=== PATIENT | female | born 1965 | race Caucasian/White ===

== ENCOUNTER 2017-06-01 14:55 | Emergency (ER) | payer MEDICARE, MEDICAID ==
[~2017-06-01] VITALS: Ht 165.1 cm; Wt 95.7 kg
[~2017-06-01 14:55] MED LIST: AMOXICILLIN500 M1 PO; ASPIRIN325 MG PO; ATIVAN0.5 MG PO; ATIVAN1 MG PO; AUGMENTIN 500 M1 TAB PO; AVELOX400 MG PO; AVPAK AZITHROM250 M1 PO; CARDIZEM CD240 MG PO; CARDIZEM120 MG PO; CIPRO250 MG PO; CIPRO500 MG PO; COUMADIN4 MG PO; DAYPRO600 M1 PO; DIFLUCAN100 MG PO; DILAUDID2 MG PO; ELIMITE 5%60 GM PO; FLAGYL500 MG PO; HYDROCOT25 MG PO; KEFLEX500 MG PO; KENALOG 0.1% OI15 GM T; LATUDA; LIDEX0.05% T; LOPRESSOR25 MG PO; LORAZEPAM1 MG PO; MEDROL DOSEPAK4 MG PO; METICORTEN1 MG; METOPROLOL; METOPROLOL SR25 MG PO; NAPROSYN500 MG PO; NEXIUM40 MG PO; OMNICEF300 MG PO; OSTERA TABLET1 EACH PO; PREDNISONE10 MG PO; PRILOSEC40 MG PO; PRINIVIL5 M1 PO; PROZAC20 MG PO; RISPERDAL1 M1 PO; SIMVASTATIN20 MG PO; ULTRAM50 MG PO; VIBRYD; VICODIN 5/500 505 MG PO; VICODIN 500 MG-1 TAB PO; VIIBRYD40 PO; VITAMIN D5000 I3 PO; ZESTRIL,PRINIVIL5 MG PO; ZETIA10 MG PO
[2017-06-01 16:12] LABS: BASO # 0.1 10*3/uL (0.0-0.1); BASO % 0.6 % (0.0-1.0); EOS % 0.4 % (1.0-4.0); HEMATOCRIT 36.1 % (37.0-47.0); HEMOGLOBIN 11.4 g/dl (12.0-16.0); LYMPH # 2.7 10*3/uL (1.3-4.4); MEAN CELL VOLUME 79.7 fl (81.0-99.0); MEAN CORPUSCULAR HGB 25.2 pg (27.0-31.0); MEAN CORPUSCULAR HGB CONC 31.6 g/dl (33.0-37.0); MEAN PLATELET VOLUME 9.5 fl (9.6-12.3); MONO # 0.6 10*3/uL (0.1-1.0); NEUT # 4.8 10*3/uL (2.3-7.9); NEUT % 58.5 % (47.0-73.0); PLATELET COUNT AUTOMATED 350 10*3/uL (130-400); RED BLOOD COUNT 4.53 10*6/uL (4.10-5.10); RED CELL DISTRI WIDTH 13.8 % (0-14.5); WHITE BLOOD COUNT 8.2 10*3/uL (4.8-10.8)
[2017-06-01 16:27] LABS: ALBUMIN 3.6 gm/dl (3.1-4.5); ALKALINE PHOSPHATASE 75 U/L (45-117); BUN 11 mg/dl (7-24); CHLORIDE 105 mmol/L (98-107); CREATININE 0.77 mg/dL (0.55-1.02); POTASSIUM 3.5 mmol/L (3.5-5.1); SGOT/AST 14 IU/L (3-35); SGPT/ALT 18 U/L (12-78); SODIUM 138 mmol/L (136-145); TOTAL PROTEIN 7.5 gm/dL (6.4-8.2)
[2017-06-01 17:04] VITALS: BP 138/62
[2017-06-01] MEDS ORDERED: MEDROL DOSEPAK4 MG PO (17:50)
== END 2017-06-01 17:50 | disposition home or self-care (01) ==
LOC: ED 14:55
PROVIDERS: Nurse Practitioner Family
DX: R51 Headache (principal); T43.595A Adverse effect of other antipsychotics and neuroleptics, initial encounter; F12.10 Cannabis abuse, uncomplicated; F31.9 Bipolar disorder, unspecified; F17.200 Nicotine dependence, unspecified, uncomplicated; Z98.890 Other specified postprocedural states; Z79.899 Other long term (current) drug therapy; Z91.040 Latex allergy status; Z88.8 Allergy status to other drugs, medicaments and biological substances; Y92.9 Unspecified place or not applicable

== ENCOUNTER 2017-06-08 09:53 | Emergency (ER) | payer MEDICARE, MEDICAID ==
[~2017-06-08] VITALS: Wt 96.2 kg
[2017-06-08 10:08] VITALS: BP 132/79
[2017-06-08 10:51] LABS: BASO % 0.4 % (0.0-1.0); EOS % 0.1 % (1.0-4.0); HEMATOCRIT 35.6 % (37.0-47.0); HEMOGLOBIN 11.1 g/dl (12.0-16.0); LYMPH # 1.8 10*3/uL (1.3-4.4); LYMPH % 24.9 % (27.0-41.0); MEAN CORPUSCULAR HGB 24.9 pg (27.0-31.0); MEAN CORPUSCULAR HGB CONC 31.2 g/dl (33.0-37.0); MEAN PLATELET VOLUME 9.8 fl (9.6-12.3); MONO # 0.4 10*3/uL (0.1-1.0); MONO % 5.6 % (3.0-9.0); NEUT # 4.9 10*3/uL (2.3-7.9); NEUT % 68.6 % (47.0-73.0); PLATELET COUNT AUTOMATED 309 10*3/uL (130-400); RED BLOOD COUNT 4.45 10*6/uL (4.10-5.10); RED CELL DISTRI WIDTH 13.7 % (0-14.5); WHITE BLOOD COUNT 7.1 10*3/uL (4.8-10.8)
[2017-06-08 11:06] LABS: ALBUMIN 3.5 gm/dl (3.1-4.5); ALKALINE PHOSPHATASE 69 U/L (45-117); BUN 5 mg/dl (7-24); CHLORIDE 104 mmol/L (98-107); CREATININE 0.66 mg/dL (0.55-1.02); LIPASE 84 U/L (73-393); POTASSIUM 3.6 mmol/L (3.5-5.1); SGOT/AST 15 IU/L (3-35); SGPT/ALT 19 U/L (12-78); SODIUM 137 mmol/L (136-145); TOTAL PROTEIN 7.2 gm/dL (6.4-8.2)
[2017-06-08 12:14] LABS: BILIRUBIN NEGATIVE (NEGATIVE); BLOOD NEGATIVE (NEGATIVE); CLARITY CLEAR (CLEAR); COLOR YELLOW (YELLOW); GLUCOSE NEGATIVE (NEGATIVE); KETONE 1+ (NEGATIVE); LEUKO ESTERASE NEGATIVE (NEGATIVE); NITRITE NEGATIVE (NEGATIVE); UROBILINOGEN 0.2 E.U./dl (0.2-1.0)
[2017-06-08 12:30] LABS: WBC 0-2 wbc/hpf (0-5)
[2017-06-08] MEDS ORDERED: CIPRO500 MG PO (12:51)
[2017-06-08] MEDS ORDERED: ZOFRAN ODT4 MG SL (12:51)
[2017-06-08] MEDS ORDERED: FLAGYL500 MG PO (12:51)
[2017-06-08] MEDS ORDERED: NORCO 5-325 TA1 EACH PO (12:51)
== END 2017-06-08 13:01 | disposition home or self-care (01) ==
LOC: ED 09:53
PROVIDERS: Physician Assistant
DX: R10.32 Left lower quadrant pain (principal); F17.200 Nicotine dependence, unspecified, uncomplicated; F12.10 Cannabis abuse, uncomplicated; Z98.890 Other specified postprocedural states; Z79.899 Other long term (current) drug therapy; Z91.040 Latex allergy status; Z88.8 Allergy status to other drugs, medicaments and biological substances; Z93.3 Colostomy status

== ENCOUNTER 2017-06-11 06:58 | Inpatient (IN) | payer MEDICARE, MEDICAID ==
[2017-06-11] VITALS (8 sets, daily range): BP systolic 104–150; BP diastolic 44–90
[~2017-06-11] VITALS: Ht 165.1 cm; Wt 94.5 kg
--- NOTE | ~2017-06-11 | EKG ---
[place], [place] ELECTROCARDIOGRAM REPORT NAME: JOE LAKE UNIT #: [id number] ROOM: 504 DOCTOR: AMADEO PEREA,JIL BIRTHDATE: [birth year] DOS: 06/11/2017 TIME: 10:25. IMPRESSION: 1. Sinus rhythm. 2. Nonspecific ST-T changes. 3. Normal QT interval. JIL CHILDS MD CM:EKGRPT:ELECTROCARDIOGRAM REPORT 1153 1232 JIL CHILDS MD
--- NOTE | ~2017-06-11 | EKG ---
[place], [place] ELECTROCARDIOGRAM REPORT NAME: JOE LAKE UNIT #: [id number] ROOM: [facility] DOCTOR: AMADEO PEREA,JIL BIRTHDATE: [birth year] DOS: 06/11/2017 TIME: 0658. IMPRESSION: 1. Sinus rhythm. 2. Nonspecific ST-T changes. 3. Baseline artifacts. JIL CHILDS MD CM:EKGRPT:ELECTROCARDIOGRAM REPORT 1208 1314 JIL CHILDS MD
--- NOTE | ~2017-06-11 | O ---
[place], [place] OPERATIVE NOTE NAME: JOE LAKE UNIT #: [id number] ROOM: 504 DOCTOR: KINGSTON GONZALES MD BIRTHDATE: [birth year] DOS: 06/15/2017 INDICATIONS: The patient is a 51-year-old who presented with epigastric distress, dyspepsia, atypical chest pain, undergoing investigation. Cardiology has been assessed and cleared for EGD. PROCEDURE: Today's procedure part of investigation is panendoscopy plus biopsy. PREMEDICATION: Versed and Diprivan. SCOPE: Olympus forward-viewing gastroscope Q10 video. REPORT: After putting the patient in the left lateral position and after application of lubricant to the scope, scope was introduced. Thereafter, under direct visualization, I advanced through the length of esophagus without difficulty. The esophagus, cervical, thoracic distally carefully examined. Gastric pouch was entered. Evidence of gastritis was noticed. Large hiatal hernia was noticed. Duodenal bulb, second and third part within normal limits. Antral biopsy was obtained for H. pylori. Photographic series of large hiatal hernia demonstrated. Air was suctioned out. The patient was extubated, tolerated the procedure well. IMPRESSION: 1. Large hiatal hernia. 2. Gastritis. PLAN AND DISCUSSION: Protonix 40 mg daily, antireflux measures with elevation of the head of the bed 6 inches all time. Gaviscon Extra Strength 1 at bedtime. Follow up as outpatient in the office and further management of the above. Thank you very much indeed. KINGSTON GONZALES MD CM:OPRECORD:OPERATIVE NOTE 1313 1528 KINGSTON GONZALES MD 06/15/17 1527 interface
--- NOTE | ~2017-06-11 | EKG ---
[place], [place] ELECTROCARDIOGRAM REPORT NAME: JOE LAKE UNIT #: [id number] ROOM: 504 DOCTOR: AMADEO PEREA,JIL BIRTHDATE: [birth year] DOS: 06/11/2017 TIME: 1307 hours. IMPRESSION: 1. Sinus rhythm. 2. Nonspecific ST-T changes. 3. Normal QT interval. JIL CHILDS MD CM:EKGRPT:ELECTROCARDIOGRAM REPORT 1214 1318 JIL CHILDS MD
--- NOTE | ~2017-06-11 | CON ---
[place], [place] REPORT OF CONSULTATION NAME: JOE LAKE UNIT #: [id number] ROOM: 504 DOCTOR: KINGSTON GONZALES MD BIRTHDATE: [birth year] DOS: 06/13/2017 HISTORY OF PRESENT ILLNESS: A 51-year-old patient, who presented with chief complaint of atypical chest pain, passing out at home, difficulty with her bowel movements for the past 2 weeks. She has gone to [facility] for a CT scan as well as enema and she had the same repeated here. No acute process in her abdomen could be found. Main organs including adrenal gland, spleen and liver all normal. No acute inflammatory process, no pancreatitis, no obstruction, no focal inflammatory process. Prior sigmoid colectomy and diverticulosis. No bowel wall thickening has been reported. She continued to complain of abdominal pain in the left lower area. Lab results were done, white blood cell 7, H and H of 11 and 35. Normal indices were noticed. Lactic acid 0.9. Comprehensive metabolic panel, electrolyte balance, C-reactive protein negative. Urinalysis unremarkable. CBC differential with no change, no acute drop. Chest x-ray, no acute cardiopulmonary disease. Troponin benign findings and blood cultures no growth. Urine cultures greater than 100,000 bacteria. Labs and records were reviewed. PAST MEDICAL HISTORY: Associated with obesity, major depression, hypertension, gastroesophageal reflux, anxiety. PAST SURGICAL HISTORY: , incisional hernia, inguinal hernia, sigmoid resection for perforated diverticulum. SOCIAL HISTORY: Active smoker as well as marijuana user and nonalcohol consumer. FAMILY HISTORY: Noncontributory. ALLERGIES: ADHESIVE TAPES, LATEX AND CARIPRAZINE ____ WELL. MEDICATIONS: List has been reviewed. REVIEW OF SYSTEMS: HEENT: Denies double vision or blurred vision. RESPIRATORY: Denies acute shortness of breath. CARDIOVASCULAR: Atypical chest pain. DIGESTIVE SYSTEM: Abdominal pain and constipation. PHYSICAL EXAMINATION: GENERAL: Reveals comfortable patient. HEENT: Head normocephalic, nontraumatic. Mouth and buccal mucosa benign. NECK: Supple. No thyromegaly. No cervical lymphadenopathy. CHEST: Symmetric anatomy, equal expansion. No wheeze. COPD pattern. HEART: Normal sinus rhythm. No gallop, no murmur. ABDOMEN: Soft. No hepato-organomegaly. Bowel sounds present. Obese. No rebound effect. EXTREMITIES: No cyanosis, no pedal edema. NEUROLOGIC: Alert, oriented to time, place and person. [place], [place] REPORT OF CONSULTATION NAME: JOE LAKE UNIT #: [id number] ROOM: [facility] DOCTOR: JANTE PEREA,KINGSTON BIRTHDATE: [birth year] IMPRESSION AND PLAN: Constipation, atypical chest pain, diverticulosis. Other adjunctive diagnoses include anxiety, include nicotine dependency, cannabis dependency, and gastroesophageal reflux. As far as the constipation is concerned, we are going to give her a colonic prep today with MiraLax 5 doses at the same time and awaiting bowel evacuation. I have reviewed the CT scan of the abdomen. There is no concern about stool impaction in the colon. On the other hand, we will be staying standby for evaluation of atypical chest pain that she is explaining. KINGSTON GONZALES MD CM:CONSTR:REPORT OF CONSULTATION 1336 06/14/17 0046 interface
[~2017-06-11 06:58] MED LIST changes: +NORCO 5-325 TA1 EACH PO; +ZOFRAN ODT4 MG SL
[2017-06-11 07:11] LABS: BASO % 0.6 % (0.0-1.0); EOS % 0.4 % (1.0-4.0); HEMATOCRIT 36.2 % (37.0-47.0); HEMOGLOBIN 11.2 g/dl (12.0-16.0); LYMPH # 1.5 10*3/uL (1.3-4.4); LYMPH % 21.9 % (27.0-41.0); MEAN CELL VOLUME 79.9 fl (81.0-99.0); MEAN CORPUSCULAR HGB 24.7 pg (27.0-31.0); MEAN CORPUSCULAR HGB CONC 30.9 g/dl (33.0-37.0); MEAN PLATELET VOLUME 9.7 fl (9.6-12.3); MONO # 0.5 10*3/uL (0.1-1.0); MONO % 7.7 % (3.0-9.0); NEUT # 4.7 10*3/uL (2.3-7.9); PLATELET COUNT AUTOMATED 322 10*3/uL (130-400); RED BLOOD COUNT 4.53 10*6/uL (4.10-5.10); RED CELL DISTRI WIDTH 13.8 % (0-14.5); WHITE BLOOD COUNT 6.8 10*3/uL (4.8-10.8)
[2017-06-11 07:19] LABS: ACT PARTIAL THROMBO TIME 21.8 SECONDS (20.8-31.5)
[2017-06-11 07:27] LABS: ALBUMIN 3.5 gm/dl (3.1-4.5); ALKALINE PHOSPHATASE 67 U/L (45-117); BUN 7 mg/dl (7-24); CHLORIDE 105 mmol/L (98-107); CREATININE 0.73 mg/dL (0.55-1.02); POTASSIUM 3.8 mmol/L (3.5-5.1); SGOT/AST 20 IU/L (3-35); SGPT/ALT 21 U/L (12-78); SODIUM 137 mmol/L (136-145); TOTAL PROTEIN 7.2 gm/dL (6.4-8.2)
[2017-06-11 07:28] LABS: TROPONIN I < 0.015 ng/ml (<0.045)
[2017-06-11] MEDS ORDERED: SIMVASTATIN40 MG PO (08:43)
[2017-06-11] MEDS ORDERED: CENTRUM COMPLE1 EACH PO (08:43)
[2017-06-12] VITALS: BP 107/59
[2017-06-12 05:54] LABS: BASO % 0.6 % (0.0-1.0); EOS # 0.1 10*3/uL (0.0-0.4); EOS % 1.3 % (1.0-4.0); HEMATOCRIT 36.2 % (37.0-47.0); LYMPH # 1.6 10*3/uL (1.3-4.4); LYMPH % 30.3 % (27.0-41.0); MEAN CELL VOLUME 82.1 fl (81.0-99.0); MEAN CORPUSCULAR HGB 24.9 pg (27.0-31.0); MEAN CORPUSCULAR HGB CONC 30.4 g/dl (33.0-37.0); MEAN PLATELET VOLUME 10.1 fl (9.6-12.3); MONO # 0.5 10*3/uL (0.1-1.0); MONO % 8.5 % (3.0-9.0); NEUT # 3.2 10*3/uL (2.3-7.9); NEUT % 58.9 % (47.0-73.0); PLATELET COUNT AUTOMATED 277 10*3/uL (130-400); RED BLOOD COUNT 4.41 10*6/uL (4.10-5.10); RED CELL DISTRI WIDTH 13.9 % (0-14.5); WHITE BLOOD COUNT 5.4 10*3/uL (4.8-10.8)
[2017-06-12 06:09] LABS: BUN 8 mg/dl (7-24); CHLORIDE 104 mmol/L (98-107); CHOLESTEROL 112 mg/dL (<200); CREATININE 0.74 mg/dL (0.55-1.02); HDL CHOLESTEROL 60 mg/dl (40-60); LDL CHOLESTEROL 29 mg/dL (9-159); SODIUM 139 mmol/L (136-145); TRIGLYCERIDES 115 mg/dl (<150); VLDL CHOLESTEROL 23 mg/dL (6-40)
[2017-06-12 07:33] LABS: VITAMIN D, 25-HYDROXY 24.3 ng/mL (30-100)
[2017-06-12 08:00] VITALS: BP 116/50
[2017-06-12 08:34] VITALS: BP 114/80
[2017-06-12 12:00] VITALS: BP 101/84
[2017-06-12 13:24] LABS: BILIRUBIN NEGATIVE (NEGATIVE); BLOOD NEGATIVE (NEGATIVE); CLARITY SL CLOUDY (CLEAR); COLOR YELLOW (YELLOW); GLUCOSE NEGATIVE (NEGATIVE); KETONE TRACE (NEGATIVE); LEUKO ESTERASE NEGATIVE (NEGATIVE); NITRITE NEGATIVE (NEGATIVE); PH 7.5 (5.0-9.0); SPECIFIC GRAVITY <= 1.005 (1.005-1.030); UROBILINOGEN 0.2 E.U./dl (0.2-1.0)
[2017-06-12 13:39] LABS: BACTERIA 2+
[2017-06-12 16:00] VITALS: BP 120/64
[2017-06-12 20:00] VITALS: BP 107/65
[2017-06-13 00:02] VITALS: BP 103/55
[2017-06-13 08:00] VITALS: BP 98/65
[2017-06-13 12:00] VITALS: BP 110/51
[2017-06-13 16:00] VITALS: BP 99/59
[2017-06-13 20:00] VITALS: BP 107/49
[2017-06-14] VITALS: BP 98/50
[2017-06-14 06:18] LABS: BASO % 0.8 % (0.0-1.0); EOS # 0.1 10*3/uL (0.0-0.4); EOS % 2.2 % (1.0-4.0); HEMATOCRIT 34.8 % (37.0-47.0); HEMOGLOBIN 10.4 g/dl (12.0-16.0); LYMPH # 1.5 10*3/uL (1.3-4.4); LYMPH % 29.6 % (27.0-41.0); MEAN CELL VOLUME 81.9 fl (81.0-99.0); MEAN CORPUSCULAR HGB 24.5 pg (27.0-31.0); MEAN CORPUSCULAR HGB CONC 29.9 g/dl (33.0-37.0); MEAN PLATELET VOLUME 9.8 fl (9.6-12.3); MONO # 0.4 10*3/uL (0.1-1.0); MONO % 8.2 % (3.0-9.0); NEUT # 2.9 10*3/uL (2.3-7.9); PLATELET COUNT AUTOMATED 248 10*3/uL (130-400); RED BLOOD COUNT 4.25 10*6/uL (4.10-5.10); WHITE BLOOD COUNT 4.9 10*3/uL (4.8-10.8)
[2017-06-14 06:30] LABS: BUN 9 mg/dl (7-24); CHLORIDE 105 mmol/L (98-107); CREATININE 0.79 mg/dL (0.55-1.02); POTASSIUM 4.2 mmol/L (3.5-5.1); SODIUM 141 mmol/L (136-145)
[2017-06-14 08:00] VITALS: BP 113/44
[2017-06-14 12:00] VITALS: BP 97/44
[2017-06-14 16:17] VITALS: BP 103/47
[2017-06-14 20:00] VITALS: BP 105/55
[2017-06-15] VITALS (10 sets, daily range): BP systolic 94–133; BP diastolic 49–66
[2017-06-15 06:02] LABS: BASO % 0.6 % (0.0-1.0); EOS # 0.1 10*3/uL (0.0-0.4); EOS % 2.9 % (1.0-4.0); HEMATOCRIT 34.6 % (37.0-47.0); HEMOGLOBIN 10.5 g/dl (12.0-16.0); LYMPH # 1.6 10*3/uL (1.3-4.4); MEAN CELL VOLUME 81.8 fl (81.0-99.0); MEAN CORPUSCULAR HGB 24.8 pg (27.0-31.0); MEAN CORPUSCULAR HGB CONC 30.3 g/dl (33.0-37.0); MEAN PLATELET VOLUME 9.9 fl (9.6-12.3); MONO # 0.4 10*3/uL (0.1-1.0); MONO % 9.1 % (3.0-9.0); NEUT # 2.7 10*3/uL (2.3-7.9); PLATELET COUNT AUTOMATED 238 10*3/uL (130-400); RED BLOOD COUNT 4.23 10*6/uL (4.10-5.10); WHITE BLOOD COUNT 4.9 10*3/uL (4.8-10.8)
[2017-06-15 06:11] LABS: BUN 11 mg/dl (7-24); CHLORIDE 104 mmol/L (98-107); CREATININE 0.72 mg/dL (0.55-1.02); SODIUM 140 mmol/L (136-145)
[2017-06-16] VITALS: BP 105/85
[2017-06-16 07:26] LABS: BASO % 0.7 % (0.0-1.0); EOS # 0.1 10*3/uL (0.0-0.4); EOS % 2.6 % (1.0-4.0); HEMATOCRIT 35.6 % (37.0-47.0); HEMOGLOBIN 10.9 g/dl (12.0-16.0); LYMPH # 1.3 10*3/uL (1.3-4.4); LYMPH % 27.9 % (27.0-41.0); MEAN CELL VOLUME 82.2 fl (81.0-99.0); MEAN CORPUSCULAR HGB 25.2 pg (27.0-31.0); MEAN CORPUSCULAR HGB CONC 30.6 g/dl (33.0-37.0); MEAN PLATELET VOLUME 10.2 fl (9.6-12.3); MONO # 0.4 10*3/uL (0.1-1.0); MONO % 8.1 % (3.0-9.0); NEUT # 2.8 10*3/uL (2.3-7.9); NEUT % 60.5 % (47.0-73.0); PLATELET COUNT AUTOMATED 242 10*3/uL (130-400); RED BLOOD COUNT 4.33 10*6/uL (4.10-5.10); RED CELL DISTRI WIDTH 13.8 % (0-14.5); WHITE BLOOD COUNT 4.6 10*3/uL (4.8-10.8)
[2017-06-16 07:40] LABS: CHLORIDE 107 mmol/L (98-107); POTASSIUM 4.3 mmol/L (3.5-5.1); SODIUM 140 mmol/L (136-145)
[2017-06-16 07:48] LABS: BUN 11 mg/dl (7-24); CREATININE 0.79 mg/dL (0.55-1.02)
[2017-06-16 08:00] VITALS: BP 108/54
[2017-06-16] MEDS ORDERED: ACID GONE TABL1 EACH PO (10:14)
[2017-06-16] MEDS ORDERED: VITAMIN D-32000 UNIT PO (10:14)
[2017-06-16] MEDS ORDERED: SEPTDS PO (10:14)
== END 2017-06-16 11:15 | disposition home or self-care (01) | DRG 872 ==
LOC: ED 06:58 → EDHOLD 07:37 → 5E 07:37
PROVIDERS: Hospitalist; Internal Medicine Nephrology; Student in an Organized Health Care Education/Training Program
PROC: 0DB68ZX Excision of Stomach, Via Natural or Artificial Opening Endoscopic, Diagnostic (ICD-10-PCS; principal; 2017-06-15)
DX: A41.9 Sepsis, unspecified organism (principal); F33.9 Major depressive disorder, recurrent, unspecified; I08.2 Rheumatic disorders of both aortic and tricuspid valves; D50.9 Iron deficiency anemia, unspecified; D72.810 Lymphocytopenia; F12.20 Cannabis dependence, uncomplicated; N39.0 Urinary tract infection, site not specified; F17.210 Nicotine dependence, cigarettes, uncomplicated; E66.9 Obesity, unspecified; E78.00 Pure hypercholesterolemia, unspecified; F41.9 Anxiety disorder, unspecified; R07.9 Chest pain, unspecified; I10 Essential (primary) hypertension; K57.90 Diverticulosis of intestine, part unspecified, without perforation or abscess without bleeding; K29.70 Gastritis, unspecified, without bleeding; K44.9 Diaphragmatic hernia without obstruction or gangrene; K59.00 Constipation, unspecified; B96.1 Klebsiella pneumoniae [K. pneumoniae] as the cause of diseases classified elsewhere; R73.9 Hyperglycemia, unspecified; K21.9 Gastro-esophageal reflux disease without esophagitis; I25.2 Old myocardial infarction; Z98.891 History of uterine scar from previous surgery; Z93.3 Colostomy status; Z79.899 Other long term (current) drug therapy; Z91.040 Latex allergy status; Z71.6 Tobacco abuse counseling; Z68.34 Body mass index [BMI] 34.0-34.9, adult; Z88.8 Allergy status to other drugs, medicaments and biological substances; Z91.048 Other nonmedicinal substance allergy status; Z82.49 Family history of ischemic heart disease and other diseases of the circulatory system; Z83.3 Family history of diabetes mellitus; Z82.3 Family history of stroke; M94.0 Chondrocostal junction syndrome [Tietze]

== ENCOUNTER 2017-06-18 12:39 | Emergency (ER) | payer MEDICARE, MEDICAID ==
[~2017-06-18] VITALS: Wt 95.3 kg
[~2017-06-18 12:39] MED LIST changes: +ACID GONE TABL1 EACH PO; +CENTRUM COMPLE1 EACH PO; +SEPTDS PO; +SIMVASTATIN40 MG PO; +VITAMIN D-32000 UNIT PO
[2017-06-18 13:01] LABS: BASO % 0.5 % (0.0-1.0); EOS % 0.6 % (1.0-4.0); HEMATOCRIT 34.1 % (37.0-47.0); HEMOGLOBIN 10.7 g/dl (12.0-16.0); LYMPH % 30.6 % (27.0-41.0); MEAN CELL VOLUME 79.1 fl (81.0-99.0); MEAN CORPUSCULAR HGB 24.8 pg (27.0-31.0); MEAN CORPUSCULAR HGB CONC 31.4 g/dl (33.0-37.0); MEAN PLATELET VOLUME 10.1 fl (9.6-12.3); MONO # 0.5 10*3/uL (0.1-1.0); NEUT % 60.1 % (47.0-73.0); PLATELET COUNT AUTOMATED 274 10*3/uL (130-400); RED BLOOD COUNT 4.31 10*6/uL (4.10-5.10); WHITE BLOOD COUNT 6.6 10*3/uL (4.8-10.8)
[2017-06-18 13:10] LABS: ACT PARTIAL THROMBO TIME 20.8 SECONDS (20.8-31.5); INTERNATIONAL NORM RATIO 0.9 (2.0-3.5)
[2017-06-18 13:21] LABS: ALBUMIN 3.3 gm/dl (3.1-4.5); ALKALINE PHOSPHATASE 62 U/L (45-117); BUN 12 mg/dl (7-24); CHLORIDE 105 mmol/L (98-107); CREATININE 0.94 mg/dL (0.55-1.02); POTASSIUM 4.1 mmol/L (3.5-5.1); SGOT/AST 19 IU/L (3-35); SGPT/ALT 21 U/L (12-78); SODIUM 137 mmol/L (136-145); TOTAL PROTEIN 7.1 gm/dL (6.4-8.2)
[2017-06-18 13:25] LABS: TROPONIN I < 0.015 ng/ml (<0.045)
[2017-06-18 13:29] VITALS: BP 113/62
[2017-06-18 13:32] LABS: URINE AMPHETAMINES < 1000 (1000ng/ml); URINE BARBITURATES < 200 (200ng/ml); URINE BENZODIAZEPINES < 200 (200ng/ml); URINE CANNABINOIDS (THC) > 50 (50ng/ml); URINE COCAINE < 300 (300ng/ml); URINE METHADONE < 300 (300ng/ml); URINE OPIATES < 300 (300ng/ml)
[2017-06-18 13:36] LABS: URINE PHENCYCLIDINE < 25 (25ng/ml)
== END 2017-06-18 14:18 | disposition home or self-care (01) ==
LOC: ED 12:39
PROVIDERS: Emergency Medicine
DX: F41.0 Panic disorder [episodic paroxysmal anxiety] (principal); F17.200 Nicotine dependence, unspecified, uncomplicated; E78.5 Hyperlipidemia, unspecified; K21.9 Gastro-esophageal reflux disease without esophagitis; Z88.8 Allergy status to other drugs, medicaments and biological substances; Z91.040 Latex allergy status

== ENCOUNTER 2018-10-04 13:31 | Inpatient (IN) | payer MEDICARE ==
[2018-10-04] VITALS (7 sets, daily range): BP systolic 104–142; BP diastolic 41–64
[~2018-10-04] VITALS: Ht 165.1 cm; Wt 88.0 kg
--- NOTE | ~2018-10-04 | O ---
[place], [place] OPERATIVE NOTE NAME: JOE LAKE UNIT #: [id number] ROOM: 424 DOCTOR: JANET PEREAKINGSTON BIRTHDATE: [birth year] DOS: 10/09/2018 ENDOSCOPIC REPORT HISTORY OF PRESENT ILLNESS: This patient is a 53-year-old patient who presented with chief complaint of exhaustion, chest pain, anemia, drop in H and H, status post transfusion, history of nonsteroidal anti-inflammatory and consultation has been dictated. The most recent data has been reviewed. The patient's DVT has been ruled out. CBC: H and H remains 10 and 33, microcytic indices. Her platelet count is 305 within normal limits. Electrolytes balanced. BUN and creatinine, GFR greater than 60. The initial H and H at the time of admission 7 and 26, microcytic indices, prior to any therapeutics. INR 0.9. Comprehensive metabolic panel, liver function tests at that time normal. Troponins have been negative. She is status post transfusion. MEDICATIONS: Medication list has been reviewed. Protonix on the list has been reported. Otherwise, no offending medication. Today's procedure part of investigation is panendoscopy and colonoscopy. PREMEDICATION: Propofol. SCOPE: Olympus forward-viewing gastroscope Q10 video. REPORT: After putting the patient in left lateral position and application of lubricant to the scope, scope was introduced. Thereafter, under direct visualization, advanced through the length of esophagus without difficulty. Esophagus cervicothoracic distally carefully examined. A large hiatal hernia approximately 4 cm was noticed. In the hiatal sac there is evidence that this patient has had most likely [place] ulcers and gastritis, mostly expressed in the antral anatomy with hyperemic folds. Biopsy for H. pylori was obtained. Duodenal bulb, second and third part within normal limits. The patient extubated after GI reflection of the scope reveals cardia to be benign. The patient tolerated the procedure well. IMPRESSION: Hiatal hernia, gastritis with no active bleeding. Continuation of Protonix. In this study we have found some evidence of possibly what explains the patient's blood loss and anemia, most likely nonsteroidal anti-inflammatory in addition to aspirin product. PLAN AND DISCUSSION: We are going to proceed with colonoscopic evaluation. [place], [place] OPERATIVE NOTE NAME: JOE LAKE UNIT #: [id number] ROOM: 424 DOCTOR: KINGSTON GONZALES MD BIRTHDATE: [birth year] KINGSTON GONZALES MD CM:OPRECORD:OPERATIVE NOTE 1950 0515 KINGSTON GONZALES MD 10/17/18 1104 interface
--- NOTE | ~2018-10-04 | O ---
[place], [place] OPERATIVE NOTE NAME: JOE LAKE UNIT #: [id number] ROOM: 424 DOCTOR: KINGSTON GONZALES MD BIRTHDATE: [birth year] DOS: 10/09/2018 SUBJECTIVE: The patient has presented with anemia, status post transfusion, atypical chest pain that we have explained partially by presence of the hiatal sac. PROCEDURE: Today's procedure part of investigation colonoscopy. PREMEDICATION: Propofol. SCOPE: Olympus forward-viewing colonoscope 10L video. REPORT: After putting the patient in left lateral position and application of lubricant to the scope, the scope was introduced. Thereafter, under direct visualization, advanced through the length of colon without difficulty. As I approached the rectal pouch, I saw the landmarks and intrusion sites and reconstruction. Evidence of previous colostomy and colostomy reversal. Scope was negotiated to sub diverticula and base of cecum explored, appendiceal orifice identified, ileocecal valve was defined. Scope was gradually withdrawn from ascending, transverse, descending colon. Diverticulosis noted, some retained stool and liquid, colonic secretions were identified, which was partially compromises the vision. However, I did not find any large intracolonic coloform status of any carcinoma. The patient extubated. Therefore, tolerated the procedure well. IMPRESSION: Diverticulosis. Some retained liquid stool, otherwise no evidence of contribution for blood loss from colon, status post previous colostomy reversal. I asked to summarize that the patient has been on 325 mg of aspirin that has contributed some mucosal aberration, chronic gastritis, which has been partially under the effect of the healing of the PPI therapy, Protonix 40 mg daily and otherwise no other contributing factor at this stage. Chest x-ray has been reviewed. No acute thoracic pathology reported in chest cage. Thank you very much indeed. We will feed. We will follow up on H and H in future. [place], [place] OPERATIVE NOTE NAME: JOE LAKE UNIT #: [id number] ROOM: 424 DOCTOR: KINGSTON GONZALES MD BIRTHDATE: [birth year] KINGSTON GONZALES MD CM:OPRECORD:OPERATIVE NOTE 1950 0529 KINGSTON GONZALES MD 10/18/18 0937 interface
--- NOTE | ~2018-10-04 | CON ---
[place], [place] REPORT OF CONSULTATION NAME: JOE LAKE UNIT #: [id number] ROOM: 424 DOCTOR: LAURIE GONZALES MDSAIMAKIMBER BIRTHDATE: [birth year] DOS: 10/04/2018 GASTROENDOSCOPIC REPORT HISTORY OF PRESENT ILLNESS: The patient is a 53-year-old patient who was presented with chief complaint of weakness, tiredness, exhaustion and the patient was admitted for definitive evaluation. She was found to have H and H of 7 and 26, microcytic indices. INR was 0.9. The patient has been taking adult aspirin 4-5 per week. Her chest x-ray was showing no acute pathology. Comprehensive metabolic panel: GFR greater than 60 and potassium 3.4. She was complaining of chest pain. This has been addressed, transfusion possibly is going to address this issue along with PPI therapy. PAST MEDICAL HISTORY: Coronary artery disease, anxiety, atypical chest pain, hiatal hernia, hyperlipidemia and hypertension. PAST SURGICAL HISTORY: Inguinal incisional hernia, , cardiac stenting. History of bowel resection in [facility], most likely for diverticulitis and abscess formation and microperforation. SOCIAL HISTORY: Active smoker and marijuana user. Nonalcohol consumer. FAMILY HISTORY: Noncontributory. ALLERGIES: SOMA, SUCCINYLCHOLINE, CARIPRAZINE, ADHESIVE AND LATEX. MEDICATIONS: List has been reviewed. The patient has been on pantoprazole chronically. REVIEW OF SYSTEMS: HEENT: Denies double vision or blurred vision. RESPIRATORY: Denies shortness of breath. CARDIOVASCULAR: Denies chest pain. DIGESTIVE SYSTEM: No hematemesis, no hematochezia. PHYSICAL EXAMINATION: VITAL SIGNS: Stable, nontoxic. HEENT: Head normocephalic, nontraumatic. Mouth and buccal mucosa benign. NECK: Supple, no thyromegaly. CHEST: Symmetric anatomy, equal expansion. No wheeze, no rhonchi. HEART: Normal sinus rhythm, no gallop, no murmur. ABDOMEN: Soft. No hepato-organomegaly. Bowel sounds present. Obese. No pulsatile mass. EXTREMITIES: No cyanosis, no pedal edema. NEUROLOGIC: Alert, oriented to time, place, person. IMPRESSION AND PLAN: Anemia, consumer of aspirin and on the other hand, chronic PPI therapy. PLAN AND DISCUSSION: The patient has already been scheduled as an outpatient [place], [place] REPORT OF CONSULTATION NAME: JOE LAKE UNIT #: [id number] ROOM: 424 DOCTOR: JANET PEREA,KINGSTON BIRTHDATE: [birth year] setting for us for EGD, colonoscopic evaluation after the cardiac evaluation and transfusion has undertaken. She can be discharged and follow up with us on her already scheduled outpatient endoscopy. KINGSTON GONZALES MD CM:CONSTR:REPORT OF CONSULTATION 06 10/18/18 0936 interface
--- NOTE | ~2018-10-04 | EKG ---
[place], [place] ELECTROCARDIOGRAM REPORT NAME: JOE LAKE UNIT #: [id number] ROOM: 424 DOCTOR: LATOYA DRAFT REPORT BIRTHDATE: [birth year] [facility] Test Date: 2018-10-04 Test Time: 20:02:44 Pat Name: JOE LAKE Department: Room: 424 Gender: F Flying Instructor: : 1965 Requested By: LULU PEREZ Order Number: [id number] Reading MD: Dharmesh Hines MD Measurements Intervals [place] Rate: 81 P: 33 [place]: 197 QRS: 33 QRSD: 86 T: 51 QT: 374 QTc: 434 Interpretive Statements Sinus rhythm Abnormal R-wave progression, early transition Compared to ECG 03/27/2018 14:42:50 Sinus arrhythmia no longer present Electronically Signed On 10-05-2018 15:56:31 PDT by Dharmesh Hines MD CM:EKGRPT:ELECTROCARDIOGRAM REPORT 01 1556 LULU KLEIN DRAFT REPORT LULU PEREZ M.D.
--- NOTE | ~2018-10-04 | EKG ---
[place], [place] ELECTROCARDIOGRAM REPORT NAME: JOE LAKE UNIT #: [id number] ROOM: 424 DOCTOR: LATOYA DRAFT REPORT BIRTHDATE: [birth year] [facility] Test Date: 2018-10-04 Test Time: 13:36:17 Pat Name: JOE LAKE Department: Room: 424 Gender: F Inspector Floor: : 1965 Requested By: LULU PEREZ Order Number: [id number] Reading MD: Dharmesh Hines MD Measurements Intervals [place] Rate: 123 P: 18 [place]: 146 QRS: 40 QRSD: 86 T: 28 QT: 324 QTc: 464 Interpretive Statements Sinus tachycardia Compared to ECG 03/27/2018 14:42:50 Sinus arrhythmia no longer present Electronically Signed On 10-05-2018 15:59:24 PDT by Dharmesh Hines MD CM:EKGRPT:ELECTROCARDIOGRAM REPORT 1336 1559 LULU KLEIN DRAFT REPORT LULU PEREZ M.D.
--- NOTE | ~2018-10-04 | EKG ---
[place], [place] ELECTROCARDIOGRAM REPORT NAME: JOE LAKE UNIT #: [id number] ROOM: 424 DOCTOR: LATOYA DRAFT REPORT BIRTHDATE: [birth year] [facility] Test Date: 2018-10-04 Test Time: 16:21:02 Pat Name: JOE LAKE Department: Room: 424 Gender: F Flat Breakdown Processor: : 1965 Requested By: LULU PEREZ Order Number: [id number] Reading MD: Dharmesh Hines MD Measurements Intervals [place] Rate: 82 P: 69 [place]: 184 QRS: 69 QRSD: 86 T: 70 QT: 384 QTc: 449 Interpretive Statements Sinus rhythm Abnormal R-wave progression, early transition Compared to ECG 03/27/2018 14:42:50 Sinus arrhythmia no longer present Electronically Signed On 10-05-2018 16:01:29 PDT by Dharmesh Hines MD CM:EKGRPT:ELECTROCARDIOGRAM REPORT 1621 1601 LULU KLEIN DRAFT REPORT LULU PEREZ M.D.
[~2018-10-04 13:31] MED LIST changes: +PRAVACHOL20 MG PO; +PROTONIX40 MG PO; +ZOLOFT100 MG PO
--- NOTE | 2018-10-04 13:42 | NUR ---
PATIENT DOES NOT HAVE MED LIST WITH THEM
[2018-10-04 14:13] LABS: BASO % 0.6 % (0.0-1.0); EOS % 0.3 % (1.0-4.0); HEMOGLOBIN 7.2 g/dl (12.0-16.0); LYMPH # 1.7 10*3/uL (1.3-4.4); MEAN CELL VOLUME 70.1 fl (81.0-99.0); MEAN CORPUSCULAR HGB 19.4 pg (27.0-31.0); MEAN CORPUSCULAR HGB CONC 27.7 g/dl (33.0-37.0); MEAN PLATELET VOLUME 9.6 fl (9.6-12.3); MONO # 0.5 10*3/uL (0.1-1.0); MONO % 7.2 % (3.0-9.0); NEUT # 3.9 10*3/uL (2.3-7.9); NEUT % 63.1 % (47.0-73.0); PLATELET COUNT AUTOMATED 350 10*3/uL (130-400); RED BLOOD COUNT 3.71 10*6/uL (4.10-5.10); RED CELL DISTRI WIDTH 16.6 % (0-14.5); WHITE BLOOD COUNT 6.2 10*3/uL (4.8-10.8)
[2018-10-04 14:18] LABS: INTERNATIONAL NORM RATIO 0.9 (2.0-3.5)
[2018-10-04 14:24] LABS: ALBUMIN 3.6 gm/dl (3.1-4.5); ALKALINE PHOSPHATASE 65 U/L (45-117); BUN 9 mg/dl (7-24); CHLORIDE 103 mmol/L (98-107); CREATININE 0.82 mg/dL (0.55-1.02); POTASSIUM 3.4 mmol/L (3.5-5.1); SGOT/AST 18 IU/L (3-35); SGPT/ALT 17 U/L (12-78); SODIUM 136 mmol/L (136-145); TOTAL PROTEIN 7.3 gm/dL (6.4-8.2)
[2018-10-04 14:35] LABS: TROPONIN I < 0.015 ng/ml (<0.045)
--- NOTE | 2018-10-04 15:49 | NUR ---
FACIAL EDEMA HAS IMPROVED AND LIPS ARE LESS RED WELL SLPOTCHY RASH IMPROVEMENT. ICE WATER PROVIDED. WILL MONITOR.
--- NOTE | 2018-10-04 16:40 | NUR ---
Time: 1639 A FEMALE year old 53 admitted to under services of DEQUAN COOK DO, Pt. arrived via wheel chair from ER. Chief complaint: CHEST PAIN,DIZZINESS,HEART PALPITATIONS. KASI STEVENS
[2018-10-04] MEDS ORDERED: PREVACID30 M3 PO (17:20)
[2018-10-04] MEDS ORDERED: RISPERDAL0.5 MG PO (17:21)
[2018-10-04] MEDS ORDERED: Ferrex 150150 MG PO (17:22)
--- NOTE | 2018-10-04 17:33 | NUR ---
MESSAGE LEFT WITH SURGERY FOR JAHDI CONSULT.
--- NOTE | 2018-10-04 18:15 | NUR ---
LAB STATES BLOOD NOT READY YET.
--- NOTE | 2018-10-04 19:50 | NUR ---
DR. GONZALES IN TO SEE PATIENT DISCUSSED POC. TYLENOL GIVEN TO PATIENT FOR C/O HEADACHE. RATED PAIN A 6/10 WITH 10 BEING WORST. SEE EMAR. REINFORCED USE OF CALL LIGHT.
--- NOTE | 2018-10-04 21:12 | NUR ---
UNIT OF PACKED CELLS STARTING TO TRANSFUSE.
--- NOTE | 2018-10-04 22:12 | NUR ---
TYLENOL GIVEN EARLIER NOT EFFECTIVE FOR HEADACHE. FIORICET GIVEN PER ONE TIME ORDER.
[2018-10-05] VITALS: BP 104/58
--- NOTE | 2018-10-05 | NUR ---
TRANSFUSION OF PACKED CELLS COMPLETED. POST TRANSFUSION LAB ORDERED PER ORDER.
--- NOTE | 2018-10-05 | NUR ---
PATIENT RESTING QUIETLY. NO FURTHER C/O VOICED.
[2018-10-05 02:12] LABS: HEMATOCRIT 28.5 % (37.0-47.0); HEMOGLOBIN 8.1 g/dl (12.0-16.0)
--- NOTE | 2018-10-05 02:15 | NUR ---
DR. HELTON CALLED WITH H/H RESULTS. NO NEW ORDERS RECEIVED.
--- NOTE | 2018-10-05 04:02 | NUR ---
24 HR chart check completed.
--- NOTE | 2018-10-05 07:00 | NUR ---
PATIENT C/O STOMACHE PAIN, NAUSEA AND DIZZINESS. DR HELTON NOTIFIED. PATIENT REQUESTED AND WAS MEDICATED WITH ATIVAN AND RISPERDOL. ZOFRAN GIVEN FOR C/O ABDOMINAL PAIN/NAUSEA. SEE EMAR. REINFORCED USE OF CALL LIGHT
[2018-10-05 07:05] LABS: BASO % 0.9 % (0.0-1.0); EOS # 0.1 10*3/uL (0.0-0.4); EOS % 1.3 % (1.0-4.0); HEMATOCRIT 29.8 % (37.0-47.0); HEMOGLOBIN 8.5 g/dl (12.0-16.0); LYMPH # 1.2 10*3/uL (1.3-4.4); LYMPH % 25.9 % (27.0-41.0); MEAN CELL VOLUME 72.3 fl (81.0-99.0); MEAN CORPUSCULAR HGB 20.6 pg (27.0-31.0); MEAN CORPUSCULAR HGB CONC 28.5 g/dl (33.0-37.0); MEAN PLATELET VOLUME 9.6 fl (9.6-12.3); MONO # 0.4 10*3/uL (0.1-1.0); MONO % 9.2 % (3.0-9.0); NEUT # 2.9 10*3/uL (2.3-7.9); NEUT % 62.5 % (47.0-73.0); PLATELET COUNT AUTOMATED 321 10*3/uL (130-400); RED BLOOD COUNT 4.12 10*6/uL (4.10-5.10); RED CELL DISTRI WIDTH 18.6 % (0-14.5); WHITE BLOOD COUNT 4.6 10*3/uL (4.8-10.8)
--- NOTE | 2018-10-05 07:17 | NUR ---
24 HR chart check completed.
[2018-10-05 07:47] LABS: ALBUMIN 3.2 gm/dl (3.1-4.5); ALKALINE PHOSPHATASE 65 U/L (45-117); BUN 7 mg/dl (7-24); CHLORIDE 109 mmol/L (98-107); CHOLESTEROL 194 mg/dL (<200); CREATININE 0.72 mg/dL (0.55-1.02); FREE T4 1.05 ng/dl (0.76-1.46); HDL CHOLESTEROL 62 mg/dl (40-60); LDL CHOLESTEROL 109 mg/dL (9-159); PHOSPHOROUS 3.4 mg/dL (2.5-4.9); SGOT/AST 14 IU/L (3-35); SGPT/ALT 18 U/L (12-78); SODIUM 141 mmol/L (136-145); TRIGLYCERIDES 117 mg/dl (<150); VLDL CHOLESTEROL 23 mg/dL (6-40)
[2018-10-05 08:00] VITALS: BP 109/54
[2018-10-05 08:19] LABS: VITAMIN D, 25-HYDROXY 23.2 ng/mL (30-100)
--- NOTE | 2018-10-05 08:36 | NUR ---
Patient resting quietly with no c/o discomfort. Respirations easy and regular. Vital signs stable. No overt distress BUT DOES C/O SLIGHT NAUSEA. KASI MONTE
--- NOTE | 2018-10-05 09:00 | NUR ---
Hide Buffer in to talk to patient. Patient states lives at home with alone. There are few steps in the home. Physician: arnoldo ramos [facility]acy[facility]: none Patient's level of ADLs: INDEPENDENT Patient has working utilities: all working DME: none Follow-up physician's appointment after d/c: will be made by hospitalist nurse director upon discharge Does patient want to access PORTAL?: no Discharge plan discussed with patient, patient lives at home alone, she states she is independent in adls and ambualtion, drives, patient will be going home when able and denies any home needs. SIM PRICE
[2018-10-05 12:00] VITALS: BP 115/51
--- NOTE | 2018-10-05 12:00 | NUR ---
Patient resting quietly with no c/o discomfort. Respirations easy and regular. Vital signs stable. No overt distress. KASI MONTE
[2018-10-05 16:00] VITALS: BP 119/79
--- NOTE | 2018-10-05 16:00 | NUR ---
Patient resting quietly with no c/o discomfort. Respirations easy and regular. Vital signs stable. No overt distress. KASI MONTE
--- NOTE | 2018-10-05 17:16 | NUR ---
MEDICATED WITH PO ATIVAN ORDERED PER PT REQUEST FOR C/O ANXIETY.
--- NOTE | 2018-10-05 18:45 | NUR ---
DR LAMA NOTIFIED THAT PT HAD FERRLECIT WITHIN THE LAST 30 MINS-1HR AND IS HAVING AND ALLERGIC REACTION TO HER THIGHS CONSISTING BUMPS AND "BURNING".
--- NOTE | 2018-10-05 19:12 | NUR ---
PATIENT MEDICATED WITH SOLUMEDROL AND ATIVAN PER ONE TIME ORDER FOR ADVERSE REACTION TO MED GIVEN EARLIER.
--- NOTE | 2018-10-05 19:41 | NUR ---
ATIVAN AND BENEDRYL GIVEN PER ONE TIME ORDER FOR PATIENT C/O PAIN, ITCHING AND C/O THAT SHE CANNOT STAND THESE SYMPTOMS MUCH LONGER.
[2018-10-05 20:00] VITALS: BP 97/80
--- NOTE | 2018-10-05 20:00 | NUR ---
PEPCID GIVEN PER ONE TIME ORDER FOR ADVERSE REACTION TO MEDICATION.
--- NOTE | 2018-10-05 20:35 | NUR ---
DR. LAMA INTO SEE PATIENT FOR MUSCLE JERKING,C/O FEELING LIKE SKIN IS BURNING. DR. CRYSTAL PUT ORDERS IN. PATIENT ASSISTED IN AMBULATION IN HALLS TO TRY TO EASE MUSCLE SPASMS.
--- NOTE | 2018-10-05 20:50 | NUR ---
PATIENT MEDICATED WITH REQUIP AND MORPHINE PER ONE TIME ORDER FOR C/O RESTLESS LEGS AND SKIN BURNING. SEE EMAR. REINFORCED USE OF CALL LIGHT
--- NOTE | 2018-10-05 22:00 | NUR ---
PATIENT RESTING MUCH CALMER, APPEARS MORE RELAXED, HIVES ON LEGS VANISHING. LEG ARE NO LONGER JUMPING.
[2018-10-06] VITALS: BP 108/63
--- NOTE | 2018-10-06 03:40 | NUR ---
24 HR chart check completed.
[2018-10-06 07:06] LABS: BASO % 0.3 % (0.0-1.0); HEMATOCRIT 32.7 % (37.0-47.0); HEMOGLOBIN 9.2 g/dl (12.0-16.0); LYMPH # 0.9 10*3/uL (1.3-4.4); LYMPH % 7.8 % (27.0-41.0); MEAN CELL VOLUME 73.3 fl (81.0-99.0); MEAN CORPUSCULAR HGB 20.6 pg (27.0-31.0); MEAN CORPUSCULAR HGB CONC 28.1 g/dl (33.0-37.0); MEAN PLATELET VOLUME 9.7 fl (9.6-12.3); MONO # 0.4 10*3/uL (0.1-1.0); MONO % 3.6 % (3.0-9.0); NEUT % 87.6 % (47.0-73.0); PLATELET COUNT AUTOMATED 382 10*3/uL (130-400); RED BLOOD COUNT 4.46 10*6/uL (4.10-5.10); RED CELL DISTRI WIDTH 18.9 % (0-14.5); WHITE BLOOD COUNT 11.4 10*3/uL (4.8-10.8)
[2018-10-06 07:39] LABS: ALBUMIN 3.1 gm/dl (3.1-4.5); BUN 9 mg/dl (7-24); CHLORIDE 107 mmol/L (98-107); POTASSIUM 4.3 mmol/L (3.5-5.1); SGPT/ALT 15 U/L (12-78); SODIUM 139 mmol/L (136-145)
[2018-10-06 07:41] LABS: ALKALINE PHOSPHATASE 58 U/L (45-117); SGOT/AST 14 IU/L (3-35); TOTAL PROTEIN 6.4 gm/dL (6.4-8.2)
[2018-10-06 08:00] VITALS: BP 125/78
--- NOTE | 2018-10-06 08:25 | NUR ---
MEDICATED WITH TYLENOL PER PRN ORDER FOR COMPLAINTS OF ALL OVER JOINT PAIN. WILL MONITOR FOR EFFECTIVENESS.
--- NOTE | 2018-10-06 09:00 | NUR ---
case management visits with patient, patient states she will be going home when able, denies any home needs
--- NOTE | 2018-10-06 09:38 | NUR ---
NOTIFIED ILEANA OF PT'S CONTINUED JOINT PAIN, PT STATES TYLENOL WAS INEFFECTIVE.
--- NOTE | 2018-10-06 10:49 | NUR ---
MEDICATED WITH NORCO PER PRN ORDER FOR COMPLAINTS OF GENERALIZED JOINT PAIN/ACHINESS. WILL MONITOR FOR EFFECTIVENESS.
[2018-10-06 12:00] VITALS: BP 135/79
--- NOTE | 2018-10-06 15:09 | NUR ---
SOUS CHEF KITCHEN MANAGER REMOVED PER ORDER.
[2018-10-06 16:00] VITALS: BP 119/72
[2018-10-06 20:00] VITALS: BP 114/50
--- NOTE | 2018-10-06 20:15 | NUR ---
PATIENT HEPLOCK OUT. REFUSES RESTART. STATING SHE WILL PROBABLY BE GOING HOME TOMORROW. DR. CANTU NOTIFIED.
--- NOTE | 2018-10-06 21:30 | NUR ---
PATIENT MEDICATED WITH NORCO AND VISTARIL PER PRN ORDER FOR C/O JOINT PAIN/ACHINESS AND VISTARIL TO HELP HER RELAX AND SLEEP.
--- NOTE | 2018-10-06 23:21 | NUR ---
PATIENT RESTING QUIETLY. NO FURTHER C/O VOICED.
[2018-10-07] VITALS: BP 100/55
--- NOTE | 2018-10-07 04:32 | NUR ---
24 HR chart check completed.
[2018-10-07 07:05] LABS: BASO % 0.6 % (0.0-1.0); EOS # 0.1 10*3/uL (0.0-0.4); EOS % 1.9 % (1.0-4.0); HEMATOCRIT 28.4 % (37.0-47.0); HEMOGLOBIN 7.9 g/dl (12.0-16.0); LYMPH # 1.9 10*3/uL (1.3-4.4); LYMPH % 26.7 % (27.0-41.0); MEAN CELL VOLUME 74.3 fl (81.0-99.0); MEAN CORPUSCULAR HGB 20.7 pg (27.0-31.0); MEAN CORPUSCULAR HGB CONC 27.8 g/dl (33.0-37.0); MEAN PLATELET VOLUME 10.3 fl (9.6-12.3); MONO # 0.6 10*3/uL (0.1-1.0); MONO % 8.6 % (3.0-9.0); NEUT # 4.3 10*3/uL (2.3-7.9); NEUT % 61.8 % (47.0-73.0); PLATELET COUNT AUTOMATED 277 10*3/uL (130-400); RED BLOOD COUNT 3.82 10*6/uL (4.10-5.10); RED CELL DISTRI WIDTH 19.5 % (0-14.5)
[2018-10-07 08:00] VITALS: BP 137/54
--- NOTE | 2018-10-07 09:23 | NUR ---
PT VERY ANXIOUS AND TEARFUL AT THIS TIME ABOUT HAVING TO STAY IN THE HOSPITAL. MEDICATED WITH ATIVAN PRN. PT ALSO COMPLAINS OF LEFT KNEE PAIN, PROVIDED NORCO. WILL MONITOR FOR EFFECTIVENESS.
--- NOTE | 2018-10-07 11:30 | NUR ---
PT SLEEPING AT THIS TIME, APPEARS COMFORTABLE, EARLIER MEDICATIONS EFFECTIVE.
[2018-10-07 12:00] VITALS: BP 128/74
--- NOTE | 2018-10-07 15:55 | NUR ---
MEDICATED WITH NORCO PER PRN ORDER FOR COMPLAINTS OF LEFT LEG/KNEE PAIN. WILL MONITOR FOR EFFECTIVENESS.
[2018-10-07 16:00] VITALS: BP 121/77
--- NOTE | 2018-10-07 16:30 | NUR ---
PT RESTING MORE COMFORTABLY, EARLIER NORCO EFFECTIVE FOR LEFT LEG/KNEE PAIN.
--- NOTE | 2018-10-07 17:23 | NUR ---
NEW IV ESTABLISHED. 22G RIGHT ARM. PT TOLERATED WELL.
--- NOTE | 2018-10-07 19:41 | NUR ---
PATIENT MEDICATED WITH ATIVAN D/T COMPLAINTS OF ANXIETY. WILL CONTINUE TO MONITOR. CALL LIGHT IN REACH.
--- NOTE | 2018-10-07 19:55 | NUR ---
IV INFILTRATED. NEW 22G INSERTED INTO LEFT HAND ON FIRST ATTEMPT WITHOUT DIFFICULTY. PATIENT TOLERATED WELL. WILL CONTINUE TO MONITOR.
[2018-10-07 20:00] VITALS: BP 111/59
[2018-10-08] VITALS (10 sets, daily range): BP systolic 103–125; BP diastolic 46–99
--- NOTE | 2018-10-08 05:15 | NUR ---
PATIENT MEDICATED WITH ZOFRAN FOR COMPLAINTS OF NAUSEA. WILL CONTINUE TO MONITOR.
--- NOTE | 2018-10-08 05:41 | NUR ---
PATIENT MEDICATED WITH NORCO FOR COMPLAINTS OF ABDOMINAL PAIN. ZOFRAN SLIGHTLY EFFECTIVE AT THIS TIME. WILL CONTINUE TO MONITOR.
[2018-10-08 06:07] LABS: BASO # 0.1 10*3/uL (0.0-0.1); BASO % 0.8 % (0.0-1.0); EOS # 0.1 10*3/uL (0.0-0.4); EOS % 1.5 % (1.0-4.0); HEMATOCRIT 27.4 % (37.0-47.0); HEMOGLOBIN 7.7 g/dl (12.0-16.0); LYMPH # 2.1 10*3/uL (1.3-4.4); LYMPH % 30.9 % (27.0-41.0); MEAN CELL VOLUME 73.9 fl (81.0-99.0); MEAN CORPUSCULAR HGB 20.8 pg (27.0-31.0); MEAN CORPUSCULAR HGB CONC 28.1 g/dl (33.0-37.0); MEAN PLATELET VOLUME 10.5 fl (9.6-12.3); MONO # 0.6 10*3/uL (0.1-1.0); MONO % 8.3 % (3.0-9.0); NEUT # 3.9 10*3/uL (2.3-7.9); PLATELET COUNT AUTOMATED 299 10*3/uL (130-400); RED BLOOD COUNT 3.71 10*6/uL (4.10-5.10); RED CELL DISTRI WIDTH 20.4 % (0-14.5); WHITE BLOOD COUNT 6.7 10*3/uL (4.8-10.8)
[2018-10-08 06:16] LABS: IRON 25 ug/dL (50-170); TOTAL IRON BINDING CAPACITY 366 ug/dl (250-450)
--- NOTE | 2018-10-08 08:31 | NUR ---
MEDICATED WITH ATIVAN PER PRN ORDER FOR COMPLAINTS OF ANXIETY. WILL MONITOR FOR EFFECTIVENESS.
--- NOTE | 2018-10-08 09:40 | NUR ---
MEDICATED WITH MORPHINE PER PRN ORDER FOR COMPLAINTS OF UPPER ABDOMINAL PAIN. WILL MONITOR FOR EFFECTIVENESS.
--- NOTE | 2018-10-08 10:07 | NUR ---
DR GONZALES MADE AWARE OF PT'S RECURRENT DROP IN HEMOGLOBIN AND ALSO ABOUT PT'S ABDOMINAL PAIN. ORDERS RECEIVED TO PREP PT FOR EGD/COLO TOMORROW.
--- NOTE | 2018-10-08 10:15 | NUR ---
BLOOD TRANSFUSION STARTED AT THIS TIME. BLOOD VERIFICATION PERFORMED BY TWO RN'S. WILL CONTINUE TO MONITOR.
--- NOTE | 2018-10-08 10:20 | NUR ---
PT RESTING MORE COMFORTABLY, EARLIER MEDICATIONS EFFECTIVE.
--- NOTE | 2018-10-08 13:24 | NUR ---
1 UNIT PACKED RED BLOOD CELLS COMPLETED AT THIS TIME. PT TOLERATED WELL, NO S/S OF REACTION.
--- NOTE | 2018-10-08 14:52 | NUR ---
MEDICATED WITH MORPHINE PER PRN ORDER FOR COMPLAINTS OF UPPER ABDOMINAL PAIN. WILL MONITOR FOR EFFECTIVENESS.
--- NOTE | 2018-10-08 17:15 | NUR ---
COLO PREP STARTED AT THIS TIME.
--- NOTE | 2018-10-08 19:53 | NUR ---
PATIENT MEDICATED WITH MORPHINE FOR COMPLAINTS OF ABDOMINAL PAIN. WILL CONTINUE TO MONITOR. CALL LIGHT IN REACH.
[2018-10-09] VITALS (7 sets, daily range): BP systolic 97–130; BP diastolic 60–72
[2018-10-09 07:13] LABS: BUN 6 mg/dl (7-24); CHLORIDE 108 mmol/L (98-107); CREATININE 0.76 mg/dL (0.55-1.02); SODIUM 143 mmol/L (136-145)
[2018-10-09 07:37] LABS: BASO % 0.6 % (0.0-1.0); EOS # 0.1 10*3/uL (0.0-0.4); EOS % 1.6 % (1.0-4.0); LYMPH # 1.5 10*3/uL (1.3-4.4); LYMPH % 22.1 % (27.0-41.0); MEAN CORPUSCULAR HGB 22.2 pg (27.0-31.0); MEAN CORPUSCULAR HGB CONC 28.5 g/dl (33.0-37.0); MEAN PLATELET VOLUME 10.3 fl (9.6-12.3); MONO # 0.7 10*3/uL (0.1-1.0); MONO % 9.8 % (3.0-9.0); NEUT # 4.4 10*3/uL (2.3-7.9); NEUT % 65.5 % (47.0-73.0); PLATELET COUNT AUTOMATED 305 10*3/uL (130-400); RED BLOOD COUNT 4.65 10*6/uL (4.10-5.10); RED CELL DISTRI WIDTH 22.5 % (0-14.5); WHITE BLOOD COUNT 6.8 10*3/uL (4.8-10.8)
[2018-10-09 07:44] LABS: HEMATOCRIT 36.1 % (37.0-47.0); HEMOGLOBIN 10.3 g/dl (12.0-16.0)
[2018-10-09 07:45] LABS: MEAN CELL VOLUME 77.6 fl (81.0-99.0)
--- NOTE | 2018-10-09 09:00 | NUR ---
case management visits with patient, patient states she will be going home when able and denies any home needs
--- NOTE | 2018-10-09 12:46 | NUR ---
Morphine given for patient request for c/o abdominal pain. Pain is rated 8/10. Will monitor.
--- NOTE | 2018-10-09 13:10 | NUR ---
Morphine effective. Patient satisfied no signs of distress.
--- NOTE | 2018-10-09 19:54 | NUR ---
24 HOUR CHART CHECK COMPLETE.
--- NOTE | 2018-10-09 21:10 | NUR ---
ADMINISTERED PRN MORPHINE AND ZOFRAN FOR COMPLAINTS OF 7/10 STOMACH PAIN AND NAUSEA. WILL CONTINUE TO MONITOR AND REASSESS IN AN HOUR. NO OTHER COMPLAINTS AT THIS TIME. CALL LIGHT IN REACH.
--- NOTE | 2018-10-09 21:36 | NUR ---
ATTEMPTED TO CALL THE RESIDENT AND DR. GONZALES FOR DIET ORDERS, NO ANSWER. WILL RETRY. PATIENT WAS NPO FOR SCOPES AND FAMILY IS BRINGING IN FOOD
--- NOTE | 2018-10-09 22:10 | NUR ---
PT COMPLAINS OF ANXIETY AND ASKED TO HAVE HER SECOND DOSE OF ATIVAN. WILL CONTINUE TO MONITOR.
--- NOTE | 2018-10-09 22:15 | NUR ---
PT STATES THE MEDICATION WAS EFFECTIVE. WILL CONTINUE TO MONITOR.
--- NOTE | 2018-10-09 23:00 | NUR ---
PT ASLEEP. NO SIGNS OF DISCOMFORT OR DISTRESS. WILL CONTINUE TO MONITOR. CALL LIGHT IN REACH.
[2018-10-10] VITALS: BP 112/55
[2018-10-10 07:19] LABS: BASO % 0.3 % (0.0-1.0); EOS # 0.1 10*3/uL (0.0-0.4); EOS % 1.3 % (1.0-4.0); HEMATOCRIT 37.5 % (37.0-47.0); HEMOGLOBIN 10.7 g/dl (12.0-16.0); LYMPH # 1.2 10*3/uL (1.3-4.4); MEAN CELL VOLUME 77.5 fl (81.0-99.0); MEAN CORPUSCULAR HGB 22.1 pg (27.0-31.0); MEAN CORPUSCULAR HGB CONC 28.5 g/dl (33.0-37.0); MEAN PLATELET VOLUME 9.6 fl (9.6-12.3); MONO # 0.5 10*3/uL (0.1-1.0); MONO % 8.3 % (3.0-9.0); NEUT # 4.5 10*3/uL (2.3-7.9); NEUT % 70.6 % (47.0-73.0); PLATELET COUNT AUTOMATED 285 10*3/uL (130-400); RED BLOOD COUNT 4.84 10*6/uL (4.10-5.10); RED CELL DISTRI WIDTH 23.1 % (0-14.5); WHITE BLOOD COUNT 6.4 10*3/uL (4.8-10.8)
[2018-10-10 07:28] LABS: BUN 7 mg/dl (7-24); CHLORIDE 108 mmol/L (98-107); SODIUM 143 mmol/L (136-145)
[2018-10-10 08:00] VITALS: BP 119/56
--- NOTE | 2018-10-10 08:27 | NUR ---
PATIENT RECEIVED NORCO FOR PAIN IN THROAT AND ARM ABOUT 12/19.
--- NOTE | 2018-10-10 09:00 | NUR ---
case management visits with patient, patient states she will be going home when able and denies any home needs
[2018-10-10] MEDS ORDERED: ASPIRIN81 MG PO (11:18)
[2018-10-10] MEDS ORDERED: VITAMIN D31000 UNI1 PO (11:18)
[2018-10-10 12:00] VITALS: BP 122/86
--- NOTE | 2018-10-10 14:27 | NUR ---
Discharge instructions reviewed with patient/family. Patient receptive and verbalizes understanding. Follow-up care arranged. Written instructions given to patient/family. [place]OCK DISCONTINUED. PATIENT AMBULATORY OFF FLOOR. JEAN DE LA O
== END 2018-10-10 14:27 | disposition home or self-care (01) | DRG 812 ==
LOC: ED 13:31 → EDHOLD 16:00 → 4E 16:00
PROVIDERS: Emergency Medicine; Family Medicine; Internal Medicine; Registered Nurse; ADMIT Internal Medicine
PROC: 30233N1 Transfusion of Nonautologous Red Blood Cells into Peripheral Vein, Percutaneous Approach (ICD-10-PCS; principal; 2018-10-04)
PROC: 0DB68ZX Excision of Stomach, Via Natural or Artificial Opening Endoscopic, Diagnostic (ICD-10-PCS; 2018-10-09)
PROC: 0DJD8ZZ Inspection of Lower Intestinal Tract, Via Natural or Artificial Opening Endoscopic (ICD-10-PCS; 2018-10-09)
DX: D62 Acute posthemorrhagic anemia (principal); K29.70 Gastritis, unspecified, without bleeding; K44.9 Diaphragmatic hernia without obstruction or gangrene; E87.6 Hypokalemia; K21.9 Gastro-esophageal reflux disease without esophagitis; F41.9 Anxiety disorder, unspecified; I25.10 Atherosclerotic heart disease of native coronary artery without angina pectoris; I10 Essential (primary) hypertension; F32.9 Major depressive disorder, single episode, unspecified; F17.210 Nicotine dependence, cigarettes, uncomplicated; E78.2 Mixed hyperlipidemia; K57.30 Diverticulosis of large intestine without perforation or abscess without bleeding; T39.015A Adverse effect of aspirin, initial encounter; T45.4X5A Adverse effect of iron and its compounds, initial encounter; Z88.8 Allergy status to other drugs, medicaments and biological substances; Z91.041 Radiographic dye allergy status; Z91.040 Latex allergy status; Z79.899 Other long term (current) drug therapy; I25.2 Old myocardial infarction; Z86.718 Personal history of other venous thrombosis and embolism; Z93.3 Colostomy status; Z98.891 History of uterine scar from previous surgery; Z82.49 Family history of ischemic heart disease and other diseases of the circulatory system; Z82.3 Family history of stroke; Z83.3 Family history of diabetes mellitus; Z84.89 Family history of other specified conditions; Y92.89 Other specified places as the place of occurrence of the external cause

== ENCOUNTER 2019-02-08 12:51 | Emergency (ER) | payer MEDICARE ==
[~2019-02-08] VITALS: Ht 162.5 cm; Wt 88.5 kg
--- NOTE | ~2019-02-08 | EKG ---
[place], [place] ELECTROCARDIOGRAM REPORT NAME: JOE LAKE UNIT #: [id number] ROOM: DOCTOR: EPIPHANY DRAFT REPORT BIRTHDATE: [birth year] [facility] Test Date: 2019-02-08 Test Time: 14:19:53 Pat Name: JOE LAKE Department: Room: Gender: F Textile Conversion Manager: EKG.AL : 1965 Requested By: ANN MARIE SMITH Order Number: [id number] Reading MD: Dharmesh Hines MD Measurements Intervals [place] Rate: 81 P: 45 NV: 180 QRS: 47 QRSD: 88 T: 56 QT: 381 QTc: 443 Interpretive Statements Sinus rhythm Probable left atrial enlargement Compared to ECG 10/04/2018 20:02:44 No significant changes Electronically Signed On 02-09-2019 15:47:30 PDT by Dharmesh Hines MD CM:EKGRPT:ELECTROCARDIOGRAM REPORT [id number] ANN MARIE KLEIN DRAFT REPORT ANN MARIE DAVIES
[~2019-02-08 12:51] MED LIST changes: +ASPIRIN81 MG PO; +Ferrex 150150 MG PO; +PREVACID30 M3 PO; +RISPERDAL0.5 MG PO; +VITAMIN D31000 UNI1 PO
[2019-02-08 14:53] LABS: ACT PARTIAL THROMBO TIME 23.6 SECONDS (20.0-32.1); INTERNATIONAL NORM RATIO 0.9 (2.0-3.5)
[2019-02-08 14:54] LABS: BASO % 0.5 % (0.0-1.0); EOS % 0.6 % (1.0-4.0); HEMATOCRIT 30.3 % (37.0-47.0); HEMOGLOBIN 8.7 g/dl (12.0-16.0); LYMPH # 1.6 10*3/uL (1.3-4.4); MEAN CELL VOLUME 71.8 fl (81.0-99.0); MEAN CORPUSCULAR HGB 20.6 pg (27.0-31.0); MEAN CORPUSCULAR HGB CONC 28.7 g/dl (33.0-37.0); MEAN PLATELET VOLUME 9.3 fl (9.6-12.3); MONO % 7.9 % (3.0-9.0); NEUT % 64.7 % (47.0-73.0); PLATELET COUNT AUTOMATED 324 10*3/uL (130-400); RED BLOOD COUNT 4.22 10*6/uL (4.10-5.10); RED CELL DISTRI WIDTH 16.8 % (0-14.5); WHITE BLOOD COUNT 6.2 10*3/uL (4.8-10.8)
[2019-02-08 14:55] LABS: MONO # 0.5 10*3/uL (0.1-1.0)
[2019-02-08 14:58] LABS: BILIRUBIN NEGATIVE (NEGATIVE); BLOOD NEGATIVE (NEGATIVE); CLARITY CLEAR (CLEAR); COLOR YELLOW (YELLOW); GLUCOSE NEGATIVE (NEGATIVE); KETONE 1+ (NEGATIVE); LEUKO ESTERASE NEGATIVE (NEGATIVE); NITRITE NEGATIVE (NEGATIVE); PH 7.5 (5.0-9.0); UROBILINOGEN 0.2 E.U./dl (0.2-1.0)
[2019-02-08 15:13] LABS: ALBUMIN 3.1 gm/dl (3.1-4.5); ALKALINE PHOSPHATASE 68 U/L (45-117); BUN 7 mg/dl (7-24); CHLORIDE 106 mmol/L (98-107); LIPASE 75 U/L (73-393); POTASSIUM 3.7 mmol/L (3.5-5.1); SGOT/AST 20 IU/L (3-35); SGPT/ALT 21 U/L (12-78); SODIUM 138 mmol/L (136-145); TOTAL PROTEIN 7.1 gm/dL (6.4-8.2)
[2019-02-08 15:15] LABS: EPITHELIAL CELLS 0-2
[2019-02-08 15:17] LABS: TROPONIN I < 0.015 ng/ml (<0.045)
[2019-02-08 15:29] VITALS: BP 110/52
== END 2019-02-08 15:51 | disposition home or self-care (01) ==
LOC: ED 12:51
PROVIDERS: Physician Assistant
DX: M79.662 Pain in left lower leg (principal); M79.661 Pain in right lower leg; M25.50 Pain in unspecified joint; R53.1 Weakness; F17.210 Nicotine dependence, cigarettes, uncomplicated; Z88.8 Allergy status to other drugs, medicaments and biological substances; Z91.040 Latex allergy status; Z79.899 Other long term (current) drug therapy

== ENCOUNTER 2019-02-17 10:41 | Emergency (ER) | payer MEDICARE ==
[~2019-02-17] VITALS: Ht 165.1 cm; Wt 91.6 kg
--- NOTE | ~2019-02-17 | EKG ---
[place], [place] ELECTROCARDIOGRAM REPORT NAME: JOE LAKE UNIT #: [id number] ROOM: DOCTOR: EPIPHANY DRAFT REPORT BIRTHDATE: [birth year] [facility] Test Date: 2019-02-17 Test Time: 10:45:41 Pat Name: JOE LAKE Department: Room: Gender: F Doctor Of Nurse Anesthesia Practice: : 1965 Requested By: LULU PEREZ Order Number: [id number] Reading MD: Nj Ramirez MD Measurements Intervals [place] Rate: 99 P: 51 VA: 166 QRS: 38 QRSD: 83 T: 45 QT: 390 QTc: 501 Interpretive Statements Sinus rhythm Probable left atrial enlargement Low voltage, precordial leads Borderline prolonged QT interval Compared to ECG 02/08/2019 14:19:53 Low QRS voltage now present Electronically Signed On 02-18-2019 8:34:02 PST by Nj Ramirez MD CM:EKGRPT:ELECTROCARDIOGRAM REPORT [id number] LULU KLEIN DRAFT REPORT LULU PEREZ M.D.
--- NOTE | ~2019-02-17 | EKG ---
[place], [place] ELECTROCARDIOGRAM REPORT NAME: JOE LAKE UNIT #: [id number] ROOM: DOCTOR: EPIPHANY DRAFT REPORT BIRTHDATE: [birth year] [facility] Test Date: 2019-02-17 Test Time: 12:55:40 Pat Name: JOE LAKE Department: Room: Gender: F Pharmacognosy Teacher: : 1965 Requested By: LULU PEREZ Order Number: [id number] Reading MD: Nj Ramirez MD Measurements Intervals [place] Rate: 90 P: 47 OR: 175 QRS: 27 QRSD: 89 T: 44 QT: 371 QTc: 454 Interpretive Statements Sinus rhythm Minimal inferior ST elevation No significant changes Electronically Signed On 02-18-2019 8:36:30 PST by Nj Ramirez MD CM:EKGRPT:ELECTROCARDIOGRAM REPORT [id number] LULU KLEIN DRAFT REPORT LULU PEREZ M.D.
[2019-02-17 11:14] LABS: BASO % 0.6 % (0.0-1.0); EOS % 0.6 % (1.0-4.0); HEMATOCRIT 31.5 % (37.0-47.0); HEMOGLOBIN 9.1 g/dl (12.0-16.0); LYMPH # 1.5 10*3/uL (1.3-4.4); LYMPH % 27.5 % (27.0-41.0); MEAN CELL VOLUME 71.8 fl (81.0-99.0); MEAN CORPUSCULAR HGB 20.7 pg (27.0-31.0); MEAN CORPUSCULAR HGB CONC 28.9 g/dl (33.0-37.0); MEAN PLATELET VOLUME 9.8 fl (9.6-12.3); MONO # 0.4 10*3/uL (0.1-1.0); MONO % 8.3 % (3.0-9.0); NEUT # 3.3 10*3/uL (2.3-7.9); NEUT % 62.6 % (47.0-73.0); PLATELET COUNT AUTOMATED 369 10*3/uL (130-400); RED BLOOD COUNT 4.39 10*6/uL (4.10-5.10); RED CELL DISTRI WIDTH 16.8 % (0-14.5); WHITE BLOOD COUNT 5.3 10*3/uL (4.8-10.8)
[2019-02-17 11:23] LABS: ACT PARTIAL THROMBO TIME 22.4 SECONDS (20.0-32.1); INTERNATIONAL NORM RATIO 0.9 (2.0-3.5)
[2019-02-17 11:36] LABS: ALBUMIN 3.5 gm/dl (3.1-4.5); ALKALINE PHOSPHATASE 67 U/L (45-117); BUN 9 mg/dl (7-24); CHLORIDE 104 mmol/L (98-107); CREATININE 0.83 mg/dL (0.55-1.02); POTASSIUM 3.9 mmol/L (3.5-5.1); SGOT/AST 25 IU/L (3-35); SGPT/ALT 26 U/L (12-78); SODIUM 136 mmol/L (136-145); TOTAL PROTEIN 7.5 gm/dL (6.4-8.2)
[2019-02-17 11:38] LABS: TROPONIN I < 0.015 ng/ml (<0.045)
[2019-02-17 12:56] VITALS: BP 119/53
== END 2019-02-17 14:20 | disposition home or self-care (01) ==
LOC: ED 10:41
PROVIDERS: Emergency Medicine
DX: R07.9 Chest pain, unspecified (principal); R06.02 Shortness of breath; R11.0 Nausea; F41.9 Anxiety disorder, unspecified; R61 Generalized hyperhidrosis; M25.511 Pain in right shoulder; M25.512 Pain in left shoulder; M54.2 Cervicalgia; R51 Headache; I25.10 Atherosclerotic heart disease of native coronary artery without angina pectoris; K21.9 Gastro-esophageal reflux disease without esophagitis; I25.2 Old myocardial infarction; E78.5 Hyperlipidemia, unspecified; I10 Essential (primary) hypertension; F17.210 Nicotine dependence, cigarettes, uncomplicated; Z79.899 Other long term (current) drug therapy; Z88.8 Allergy status to other drugs, medicaments and biological substances; Z91.040 Latex allergy status; Z86.718 Personal history of other venous thrombosis and embolism

== ENCOUNTER 2019-04-28 14:40 | Emergency (ER) | payer MEDICARE ==
[~2019-04-28] VITALS: Ht 162.5 cm; Wt 93.0 kg
[2019-04-28 15:31] LABS: BASO % 0.6 % (0.0-1.0); EOS # 0.1 10*3/uL (0.0-0.4); HEMATOCRIT 27.2 % (37.0-47.0); HEMOGLOBIN 7.5 g/dl (12.0-16.0); LYMPH # 1.3 10*3/uL (1.3-4.4); LYMPH % 21.5 % (27.0-41.0); MEAN CELL VOLUME 69.2 fl (81.0-99.0); MEAN CORPUSCULAR HGB 19.1 pg (27.0-31.0); MEAN CORPUSCULAR HGB CONC 27.6 g/dl (33.0-37.0); MEAN PLATELET VOLUME 9.6 fl (9.6-12.3); MONO # 0.4 10*3/uL (0.1-1.0); MONO % 5.8 % (3.0-9.0); NEUT # 4.4 10*3/uL (2.3-7.9); NEUT % 70.9 % (47.0-73.0); PLATELET COUNT AUTOMATED 324 10*3/uL (130-400); RED BLOOD COUNT 3.93 10*6/uL (4.10-5.10); RED CELL DISTRI WIDTH 17.1 % (0-14.5); WHITE BLOOD COUNT 6.2 10*3/uL (4.8-10.8)
[2019-04-28 15:51] LABS: ALBUMIN 3.4 gm/dl (3.1-4.5); ALKALINE PHOSPHATASE 52 U/L (45-117); BUN 10 mg/dl (7-24); CHLORIDE 108 mmol/L (98-107); CREATININE 0.95 mg/dL (0.55-1.02); POTASSIUM 3.6 mmol/L (3.5-5.1); SGOT/AST 15 IU/L (3-35); SGPT/ALT 23 U/L (12-78); SODIUM 140 mmol/L (136-145)
[2019-04-28] MEDS ORDERED: PRILOSEC20 M1 PO (16:35)
[2019-04-28 19:20] VITALS: BP 113/65
== END 2019-04-28 21:41 | disposition short-term general hospital (02) ==
LOC: ED 14:40
PROVIDERS: Emergency Medicine
DX: D64.9 Anemia, unspecified (principal); K21.9 Gastro-esophageal reflux disease without esophagitis; I25.2 Old myocardial infarction; E78.5 Hyperlipidemia, unspecified; I10 Essential (primary) hypertension; I25.10 Atherosclerotic heart disease of native coronary artery without angina pectoris; Z91.048 Other nonmedicinal substance allergy status; Z88.8 Allergy status to other drugs, medicaments and biological substances; Z91.040 Latex allergy status; Z79.899 Other long term (current) drug therapy; Z86.718 Personal history of other venous thrombosis and embolism; Z87.891 Personal history of nicotine dependence

== ENCOUNTER → 2020-09-01 | Outpatient (CLI) | payer MEDICARE ==
[~2020-09-01] MED LIST changes: +PRILOSEC20 M1 PO
[2020-09-01 09:56] LABS: BILIRUBIN Negative (Negative); BLOOD Negative (Negative); CLARITY Clear (Clear); COLOR Yellow (Yellow); GLUCOSE Negative (Negative); KETONE Negative (Negative); LEUKO ESTERASE Negative (Negative); NITRITE Negative (Negative); PH 7.5 (4.5-8.0); SPECIFIC GRAVITY <= 1.005 (1.001-1.030); UROBILINOGEN 0.2 E.U./dl (0.0-1.0)
[2020-09-01 09:57] LABS: BASO % 0.6 % (0.0-1.0); EOS # 0.1 10*3/uL (0.0-0.4); EOS % 1.7 % (1.0-4.0); HEMATOCRIT 39.2 % (37.0-47.0); LYMPH # 1.6 10*3/uL (1.3-4.4); LYMPH % 24.5 % (27.0-41.0); MEAN CELL VOLUME 85.2 fl (81.0-99.0); MEAN CORPUSCULAR HGB 25.9 pg (27.0-31.0); MEAN CORPUSCULAR HGB CONC 30.4 g/dl (33.0-37.0); MEAN PLATELET VOLUME 10.1 fl (9.6-12.3); MONO # 0.4 10*3/uL (0.1-1.0); MONO % 6.1 % (3.0-9.0); NEUT # 4.3 10*3/uL (2.3-7.9); NEUT % 66.8 % (47.0-73.0); PLATELET COUNT AUTOMATED 239 10*3/uL (130-400); RETICULOCYTE % 1.83 % (0.50-2.50); WHITE BLOOD COUNT 6.4 10*3/uL (4.8-10.8)
[2020-09-01 10:27] LABS: ALBUMIN 2.9 gm/dl (3.1-4.5); BUN 9 mg/dl (7-24); CHLORIDE 107 mmol/L (98-107); CHOLESTEROL 167 mg/dL (<200); CREATININE 0.65 mg/dL (0.55-1.02); GAMMA GLUTAMYL TRANSPEPTIDASE 9 U/L (5-55); IRON 31 ug/dL (50-170); LDL CHOLESTEROL 78 mg/dL (9-159); POTASSIUM 4.3 mmol/L (3.5-5.1); SGOT/AST 13 IU/L (3-35); SODIUM 137 mmol/L (136-145); TOTAL IRON BINDING CAPACITY 316 ug/dl (250-450); TRIGLYCERIDES 180 mg/dl (<150)
[2020-09-01 10:34] LABS: FERRITIN 13.6 ng/mL (10.0-291.0); VITAMIN D, 25-HYDROXY 27.4 ng/mL (30-100)
[2020-09-01 10:36] LABS: ALKALINE PHOSPHATASE 74 U/L (45-117); SGPT/ALT 17 U/L (12-78); THYROID STIM HORMONE (HS) 0.436 uIU/ml (0.358-4.75); TOTAL PROTEIN 6.7 gm/dL (6.4-8.2)
[2020-09-01 10:40] LABS: BACTERIA TRACE; RBC 0-2 rbc/hpf (0-2)
== END ==
LOC: LAB 09:16
PROVIDERS: ATTEND Family Medicine
DX: E55.9 Vitamin D deficiency, unspecified (principal); R53.83 Other fatigue; R79.89 Other specified abnormal findings of blood chemistry; R74.8 Abnormal levels of other serum enzymes; E78.5 Hyperlipidemia, unspecified

== ENCOUNTER → 2021-03-18 | Outpatient (CLI) | payer MEDICARE | END | disposition home or self-care (01) | LOC: COVID19 15:04 | PROVIDERS: ATTEND Student in an Organized Health Care Education/Training Program | DX: U07.1 COVID-19 (principal) ==

== ENCOUNTER 2021-05-27 09:53 | Emergency (ER) | payer MEDICARE ==
[~2021-05-27] VITALS: Ht 162.5 cm; Wt 95.3 kg
[2021-05-27 10:39] LABS: BASO % 0.4 % (0.0-1.0); EOS % 0.7 % (1.0-4.0); HEMATOCRIT 40.9 % (37.0-47.0); LYMPH # 1.6 10*3/uL (1.3-4.4); LYMPH % 28.2 % (27.0-41.0); MEAN CELL VOLUME 86.7 fl (81.0-99.0); MEAN CORPUSCULAR HGB 26.5 pg (27.0-31.0); MEAN CORPUSCULAR HGB CONC 30.6 g/dl (33.0-37.0); MEAN PLATELET VOLUME 9.7 fl (9.6-12.3); MONO # 0.5 10*3/uL (0.1-1.0); MONO % 8.7 % (3.0-9.0); NEUT # 3.4 10*3/uL (2.3-7.9); NEUT % 61.6 % (47.0-73.0); PLATELET COUNT AUTOMATED 198 10*3/uL (130-400); RED BLOOD COUNT 4.72 10*6/uL (4.10-5.10); RED CELL DISTRI WIDTH 14.7 % (0-14.5); WHITE BLOOD COUNT 5.5 10*3/uL (4.8-10.8)
[2021-05-27 10:59] LABS: ALKALINE PHOSPHATASE 70 U/L (45-117); BUN 7 mg/dl (7-24); CHLORIDE 106 mmol/L (98-107); CREATININE 0.69 mg/dL (0.55-1.02); POTASSIUM 3.8 mmol/L (3.5-5.1); SGOT/AST 24 IU/L (3-35); SGPT/ALT 19 U/L (12-78); SODIUM 138 mmol/L (136-145); TOTAL PROTEIN 6.7 gm/dL (6.4-8.2)
[2021-05-27 13:10] VITALS: BP 131/89
== END 2021-05-27 13:10 | disposition home or self-care (01) ==
LOC: ED 09:53
PROVIDERS: Emergency Medicine
DX: R07.9 Chest pain, unspecified (principal); R11.0 Nausea; R61 Generalized hyperhidrosis; I25.10 Atherosclerotic heart disease of native coronary artery without angina pectoris; K21.9 Gastro-esophageal reflux disease without esophagitis; E78.5 Hyperlipidemia, unspecified; I10 Essential (primary) hypertension; I25.2 Old myocardial infarction; F17.210 Nicotine dependence, cigarettes, uncomplicated; Z88.8 Allergy status to other drugs, medicaments and biological substances; Z91.040 Latex allergy status; Z79.899 Other long term (current) drug therapy; Z98.890 Other specified postprocedural states

== ENCOUNTER → 2021-09-24 | Outpatient (CLI) | payer MEDICARE ==
[2021-09-24 13:30] LABS: BASO % 0.4 % (0.0-1.0); EOS # 0.1 10*3/uL (0.0-0.4); LYMPH % 29.3 % (27.0-41.0); MEAN CELL VOLUME 89.5 fl (81.0-99.0); MEAN CORPUSCULAR HGB 27.5 pg (27.0-31.0); MEAN CORPUSCULAR HGB CONC 30.8 g/dl (33.0-37.0); MEAN PLATELET VOLUME 9.6 fl (9.6-12.3); MONO # 0.5 10*3/uL (0.1-1.0); MONO % 7.3 % (3.0-9.0); NEUT # 4.2 10*3/uL (2.3-7.9); NEUT % 61.6 % (47.0-73.0); PLATELET COUNT AUTOMATED 220 10*3/uL (130-400); RED BLOOD COUNT 4.47 10*6/uL (4.10-5.10); RED CELL DISTRI WIDTH 14.1 % (0-14.5); RETICULOCYTE % 2.39 % (0.50-2.50); WHITE BLOOD COUNT 6.9 10*3/uL (4.8-10.8)
[2021-09-24 13:31] LABS: BILIRUBIN Negative (Negative); BLOOD Negative (Negative); CLARITY Clear (Clear); COLOR Yellow (Yellow); GLUCOSE Negative (Negative); KETONE Negative (Negative); LEUKO ESTERASE 1+ (Negative); NITRITE Negative (Negative); UROBILINOGEN 0.2 E.U./dl (0.0-1.0)
[2021-09-24 13:44] LABS: BACTERIA 1+; EPITHELIAL CELLS 0-2
[2021-09-24 13:46] LABS: ALKALINE PHOSPHATASE 75 U/L (45-117); BUN 9 mg/dl (7-24); CHLORIDE 105 mmol/L (98-107); CHOLESTEROL 172 mg/dL (<200); CREATININE 0.66 mg/dL (0.55-1.02); GAMMA GLUTAMYL TRANSPEPTIDASE 12 U/L (5-55); IRON 296 ug/dL (50-170); LDL CHOLESTEROL 66 mg/dL (9-159); POTASSIUM 3.8 mmol/L (3.5-5.1); SGOT/AST 13 IU/L (3-35); SGPT/ALT 17 U/L (12-78); SODIUM 139 mmol/L (136-145); TOTAL IRON BINDING CAPACITY 332 ug/dl (250-450); TOTAL PROTEIN 6.6 gm/dL (6.4-8.2); TRIGLYCERIDES 216 mg/dl (<150); URIC ACID 4.5 mg/dL (2.6-6.0)
[2021-09-24 14:18] LABS: FERRITIN 10.5 ng/mL (10.0-291.0); VITAMIN D, 25-HYDROXY 37.6 ng/mL (30-100)
[2021-09-25 08:08] LABS: RHEUMATOID FACTOR 11.2 IU/mL (<14.0)
[2021-09-25 12:07] LABS: ANTI-DSDNA ANTIBODIES <1 IU/mL (0-9)
== END | disposition home or self-care (01) ==
LOC: LAB 12:57
PROVIDERS: ATTEND Family Medicine
DX: E78.5 Hyperlipidemia, unspecified (principal); R79.89 Other specified abnormal findings of blood chemistry; R53.83 Other fatigue; R74.8 Abnormal levels of other serum enzymes; E55.9 Vitamin D deficiency, unspecified

== ENCOUNTER 2021-11-30 10:20 | Emergency (ER) | payer MEDICARE ==
[~2021-11-30] VITALS: Ht 162.5 cm; Wt 99.8 kg
[2021-11-30 11:51] VITALS: BP 141/80
[2021-11-30 13:21] LABS: BASO % 0.5 % (0.0-1.0); EOS % 0.4 % (1.0-4.0); HEMATOCRIT 43.9 % (37.0-47.0); LYMPH # 1.8 10*3/uL (1.3-4.4); LYMPH % 20.9 % (27.0-41.0); MEAN CELL VOLUME 83.9 fl (81.0-99.0); MEAN CORPUSCULAR HGB CONC 32.1 g/dl (33.0-37.0); MEAN PLATELET VOLUME 9.5 fl (9.6-12.3); MONO # 0.6 10*3/uL (0.1-1.0); MONO % 6.8 % (3.0-9.0); NEUT % 71.2 % (47.0-73.0); PLATELET COUNT AUTOMATED 273 10*3/uL (130-400); RED BLOOD COUNT 5.23 10*6/uL (4.10-5.10); RED CELL DISTRI WIDTH 13.2 % (0-14.5); WHITE BLOOD COUNT 8.4 10*3/uL (4.8-10.8)
[2021-11-30 13:45] LABS: ALKALINE PHOSPHATASE 70 U/L (45-117); BUN 6 mg/dl (7-24); CHLORIDE 106 mmol/L (98-107); POTASSIUM 3.8 mmol/L (3.5-5.1); SGOT/AST 11 IU/L (3-35); SGPT/ALT 17 U/L (12-78); SODIUM 137 mmol/L (136-145); TOTAL PROTEIN 7.1 gm/dL (6.4-8.2)
[2021-11-30] MEDS ORDERED: XOPENEX HFA15 GM INH (14:44)
[2021-11-30] MEDS ORDERED: ZITHROMAX250 MG PO (14:45)
== END 2021-11-30 15:19 | disposition home or self-care (01) ==
LOC: ED 10:20
PROVIDERS: Nurse Practitioner Family
DX: J44.9 Chronic obstructive pulmonary disease, unspecified (principal); Z20.822 Contact with and (suspected) exposure to COVID-19; Z88.8 Allergy status to other drugs, medicaments and biological substances; Z91.040 Latex allergy status; Z79.899 Other long term (current) drug therapy; Z98.890 Other specified postprocedural states; F17.210 Nicotine dependence, cigarettes, uncomplicated

== ENCOUNTER 2022-01-24 12:36 | Emergency (ER) | payer MEDICARE ==
[~2022-01-24] VITALS: Ht 165.1 cm; Wt 94.8 kg
[~2022-01-24 12:36] MED LIST changes: +XOPENEX HFA15 GM INH; +ZITHROMAX250 MG PO
[2022-01-24 13:23] VITALS: BP 153/71
[2022-01-24 13:30] LABS: BASO % 0.6 % (0.0-1.0); EOS % 0.3 % (1.0-4.0); HEMATOCRIT 42.6 % (37.0-47.0); LYMPH # 1.4 10*3/uL (1.3-4.4); LYMPH % 20.7 % (27.0-41.0); MEAN CELL VOLUME 89.3 fl (81.0-99.0); MEAN CORPUSCULAR HGB 28.5 pg (27.0-31.0); MEAN CORPUSCULAR HGB CONC 31.9 g/dl (33.0-37.0); MEAN PLATELET VOLUME 9.4 fl (9.6-12.3); MONO # 0.4 10*3/uL (0.1-1.0); MONO % 6.2 % (3.0-9.0); NEUT # 4.9 10*3/uL (2.3-7.9); NEUT % 71.9 % (47.0-73.0); PLATELET COUNT AUTOMATED 220 10*3/uL (130-400); RED BLOOD COUNT 4.77 10*6/uL (4.10-5.10); RED CELL DISTRI WIDTH 16.3 % (0-14.5); WHITE BLOOD COUNT 6.8 10*3/uL (4.8-10.8)
[2022-01-24 13:44] LABS: ACT PARTIAL THROMBO TIME 24.9 SECONDS (20.0-32.1)
[2022-01-24 13:47] LABS: ALKALINE PHOSPHATASE 77 U/L (45-117); BUN 5 mg/dl (7-24); CHLORIDE 106 mmol/L (98-107); CREATININE 0.65 mg/dL (0.55-1.02); LIPASE 65 U/L (73-393); POTASSIUM 3.7 mmol/L (3.5-5.1); SGOT/AST 15 IU/L (3-35); SGPT/ALT 21 U/L (12-78); SODIUM 137 mmol/L (136-145); TOTAL PROTEIN 7.3 gm/dL (6.4-8.2)
== END 2022-01-24 16:30 | disposition left against medical advice (07) ==
LOC: ED 12:36
PROVIDERS: Family Medicine
DX: R07.9 Chest pain, unspecified (principal); Z91.040 Latex allergy status; Z88.8 Allergy status to other drugs, medicaments and biological substances; Z79.899 Other long term (current) drug therapy; Z98.890 Other specified postprocedural states; F17.210 Nicotine dependence, cigarettes, uncomplicated

== ENCOUNTER 2022-01-28 16:12 | Emergency (ER) | payer MEDICARE ==
[~2022-01-28] VITALS: Ht 162.5 cm; Wt 96.2 kg
[2022-01-28 16:46] LABS: BASO # 0.1 10*3/uL (0.0-0.1); BASO % 0.6 % (0.0-1.0); EOS # 0.1 10*3/uL (0.0-0.4); EOS % 0.7 % (1.0-4.0); HEMATOCRIT 42.4 % (37.0-47.0); LYMPH # 2.5 10*3/uL (1.3-4.4); MEAN CELL VOLUME 88.3 fl (81.0-99.0); MEAN CORPUSCULAR HGB 28.8 pg (27.0-31.0); MEAN CORPUSCULAR HGB CONC 32.5 g/dl (33.0-37.0); MEAN PLATELET VOLUME 9.4 fl (9.6-12.3); MONO # 0.7 10*3/uL (0.1-1.0); NEUT # 5.4 10*3/uL (2.3-7.9); NEUT % 61.4 % (47.0-73.0); PLATELET COUNT AUTOMATED 288 10*3/uL (130-400); RED CELL DISTRI WIDTH 16.1 % (0-14.5); WHITE BLOOD COUNT 8.7 10*3/uL (4.8-10.8)
[2022-01-28 16:59] LABS: INTERNATIONAL NORM RATIO 0.9 (2.0-3.5)
[2022-01-28 17:02] LABS: ALKALINE PHOSPHATASE 71 U/L (45-117); BUN 10 mg/dl (7-24); CHLORIDE 104 mmol/L (98-107); CREATININE 0.83 mg/dL (0.55-1.02); POTASSIUM 3.5 mmol/L (3.5-5.1); SGOT/AST 10 IU/L (3-35); SGPT/ALT 18 U/L (12-78); SODIUM 140 mmol/L (136-145); TOTAL PROTEIN 7.7 gm/dL (6.4-8.2)
[2022-01-28 19:39] VITALS: BP 130/84
== END 2022-01-28 19:40 | disposition home or self-care (01) ==
LOC: ED 16:12
PROVIDERS: Family Medicine
DX: R07.9 Chest pain, unspecified (principal); F41.1 Generalized anxiety disorder; Z88.8 Allergy status to other drugs, medicaments and biological substances; Z91.040 Latex allergy status; Z79.899 Other long term (current) drug therapy; Z98.890 Other specified postprocedural states; F17.210 Nicotine dependence, cigarettes, uncomplicated

== ENCOUNTER 2022-02-10 16:44 | Emergency (ER) | payer MEDICARE ==
[~2022-02-10] VITALS: Ht 162.5 cm; Wt 94.8 kg
[2022-02-10 16:52] VITALS: BP 120/99
[2022-02-10 17:11] LABS: BASO % 0.5 % (0.0-1.0); EOS % 0.5 % (1.0-4.0); HEMATOCRIT 42.9 % (37.0-47.0); LYMPH # 1.9 10*3/uL (1.3-4.4); LYMPH % 22.1 % (27.0-41.0); MEAN CELL VOLUME 89.6 fl (81.0-99.0); MEAN CORPUSCULAR HGB 28.8 pg (27.0-31.0); MEAN CORPUSCULAR HGB CONC 32.2 g/dl (33.0-37.0); MEAN PLATELET VOLUME 9.5 fl (9.6-12.3); MONO # 0.6 10*3/uL (0.1-1.0); MONO % 6.7 % (3.0-9.0); NEUT # 5.9 10*3/uL (2.3-7.9); PLATELET COUNT AUTOMATED 281 10*3/uL (130-400); RED BLOOD COUNT 4.79 10*6/uL (4.10-5.10); RED CELL DISTRI WIDTH 15.2 % (0-14.5); WHITE BLOOD COUNT 8.5 10*3/uL (4.8-10.8)
[2022-02-10 17:27] LABS: ALKALINE PHOSPHATASE 65 U/L (45-117); BUN 10 mg/dl (7-24); CHLORIDE 104 mmol/L (98-107); CREATININE 0.64 mg/dL (0.55-1.02); POTASSIUM 3.8 mmol/L (3.5-5.1); SGOT/AST 9 IU/L (3-35); SGPT/ALT 15 U/L (12-78); SODIUM 136 mmol/L (136-145); TOTAL PROTEIN 7.1 gm/dL (6.4-8.2)
[2022-02-10 17:40] LABS: ACT PARTIAL THROMBO TIME 25.6 SECONDS (20.0-32.1)
== END 2022-02-10 19:34 | disposition home or self-care (01) ==
LOC: ED 16:44
PROVIDERS: Emergency Medicine
DX: R07.89 Other chest pain (principal); R00.2 Palpitations; R55 Syncope and collapse; F41.9 Anxiety disorder, unspecified; I25.10 Atherosclerotic heart disease of native coronary artery without angina pectoris; J44.9 Chronic obstructive pulmonary disease, unspecified; K21.9 Gastro-esophageal reflux disease without esophagitis; I25.2 Old myocardial infarction; F32.9 Major depressive disorder, single episode, unspecified; E78.5 Hyperlipidemia, unspecified; F17.200 Nicotine dependence, unspecified, uncomplicated; Z91.048 Other nonmedicinal substance allergy status; Z88.8 Allergy status to other drugs, medicaments and biological substances; Z91.040 Latex allergy status; Z79.2 Long term (current) use of antibiotics; Z79.899 Other long term (current) drug therapy; Z86.718 Personal history of other venous thrombosis and embolism; Z98.890 Other specified postprocedural states

== ENCOUNTER → 2022-04-20 | Outpatient (CLI) | payer MEDICARE ==
[2022-04-20 09:08] LABS: BASO % 0.7 % (0.0-1.0); BILIRUBIN Negative (Negative); BLOOD Negative (Negative); CLARITY Clear (Clear); COLOR Yellow (Yellow); EOS # 0.1 10*3/uL (0.0-0.4); EOS % 1.2 % (1.0-4.0); GLUCOSE Negative (Negative); HEMATOCRIT 39.8 % (37.0-47.0); KETONE Negative (Negative); LEUKO ESTERASE 1+ (Negative); LYMPH # 1.6 10*3/uL (1.3-4.4); LYMPH % 26.3 % (27.0-41.0); MEAN CELL VOLUME 90.2 fl (81.0-99.0); MEAN CORPUSCULAR HGB 28.8 pg (27.0-31.0); MEAN CORPUSCULAR HGB CONC 31.9 g/dl (33.0-37.0); MEAN PLATELET VOLUME 9.9 fl (9.6-12.3); MONO # 0.4 10*3/uL (0.1-1.0); MONO % 7.1 % (3.0-9.0); NEUT # 3.8 10*3/uL (2.3-7.9); NEUT % 64.4 % (47.0-73.0); NITRITE Negative (Negative); PLATELET COUNT AUTOMATED 212 10*3/uL (130-400); RED BLOOD COUNT 4.41 10*6/uL (4.10-5.10); RED CELL DISTRI WIDTH 12.7 % (0-14.5); RETICULOCYTE % 1.44 % (0.50-2.50); SPECIFIC GRAVITY <= 1.005 (1.001-1.030); UROBILINOGEN 0.2 E.U./dl (0.0-1.0); WHITE BLOOD COUNT 5.9 10*3/uL (4.8-10.8)
[2022-04-20 09:39] LABS: ALKALINE PHOSPHATASE 65 U/L (46-116); BUN 9 mg/dl (9-23); CHLORIDE 106 mmol/L (98-107); CHOLESTEROL 172 mg/dL (<200); GAMMA GLUTAMYL TRANSPEPTIDASE 23 U/L (0-73); LDL CHOLESTEROL 79 mg/dL (9-159); POTASSIUM 4.1 mmol/L (3.4-5.1); SGPT/ALT 11 U/L (10-49); T3 UPTAKE 25.9 % (22.4-36.7); THYROID STIM HORMONE (HS) 0.552 uIU/ml (0.550-4.780); THYROXINE (T4) TOTAL 7.1 ug/dl (4.5-10.9); TOTAL PROTEIN 6.5 gm/dL (6.0-8.0); TRIGLYCERIDES 211 mg/dl (<150)
[2022-04-20 11:15] LABS: VITAMIN D, 25-HYDROXY 42.6 ng/mL (30-100)
== END | disposition home or self-care (01) ==
LOC: LAB 08:35 → CT 11:00
PROVIDERS: ATTEND Family Medicine
DX: Z01.812 Encounter for preprocedural laboratory examination (principal); K44.9 Diaphragmatic hernia without obstruction or gangrene; M47.814 Spondylosis without myelopathy or radiculopathy, thoracic region; E78.5 Hyperlipidemia, unspecified; E55.9 Vitamin D deficiency, unspecified; R79.89 Other specified abnormal findings of blood chemistry; R53.83 Other fatigue; R74.8 Abnormal levels of other serum enzymes

== ENCOUNTER 2022-06-07 15:07 | Emergency (ER) | payer MEDICARE ==
[~2022-06-07] VITALS: Wt 94.9 kg
[2022-06-07 16:24] LABS: BASO % 0.5 % (0.0-1.0); EOS % 0.3 % (1.0-4.0); LYMPH # 1.7 10*3/uL (1.3-4.4); LYMPH % 26.3 % (27.0-41.0); MEAN CELL VOLUME 85.2 fl (81.0-99.0); MEAN CORPUSCULAR HGB 25.6 pg (27.0-31.0); MEAN PLATELET VOLUME 9.6 fl (9.6-12.3); MONO # 0.4 10*3/uL (0.1-1.0); MONO % 6.6 % (3.0-9.0); NEUT # 4.2 10*3/uL (2.3-7.9); NEUT % 66.1 % (47.0-73.0); PLATELET COUNT AUTOMATED 249 10*3/uL (130-400); RED BLOOD COUNT 4.46 10*6/uL (4.10-5.10); RED CELL DISTRI WIDTH 13.5 % (0-14.5); WHITE BLOOD COUNT 6.4 10*3/uL (4.8-10.8)
[2022-06-07 16:38] LABS: ALKALINE PHOSPHATASE 63 U/L (46-116); BUN 5 mg/dl (9-23); CHLORIDE 106 mmol/L (98-107); LIPASE 30 U/L (12-53); POTASSIUM 3.6 mmol/L (3.4-5.1); SGPT/ALT 14 U/L (10-49); TOTAL PROTEIN 6.7 gm/dL (6.0-8.0)
[2022-06-07 20:00] VITALS: BP 104/58
== END 2022-06-07 20:15 | disposition home or self-care (01) ==
LOC: ED 15:07
PROVIDERS: Emergency Medicine
DX: R10.13 Epigastric pain (principal); F41.9 Anxiety disorder, unspecified; I25.10 Atherosclerotic heart disease of native coronary artery without angina pectoris; Z87.442 Personal history of urinary calculi; F31.9 Bipolar disorder, unspecified; Z91.041 Radiographic dye allergy status; Z88.8 Allergy status to other drugs, medicaments and biological substances; Z98.890 Other specified postprocedural states; F17.210 Nicotine dependence, cigarettes, uncomplicated; F12.90 Cannabis use, unspecified, uncomplicated

== ENCOUNTER 2022-06-20 13:20 | Emergency (ER) | payer MEDICARE ==
[~2022-06-20] VITALS: Ht 165.1 cm; Wt 94.8 kg
[2022-06-20 13:40] VITALS: BP 138/52
[2022-06-20 14:56] LABS: BASO % 0.7 % (0.0-1.0); EOS # 0.1 10*3/uL (0.0-0.4); EOS % 0.8 % (1.0-4.0); HEMATOCRIT 37.3 % (37.0-47.0); LYMPH # 1.5 10*3/uL (1.3-4.4); LYMPH % 25.2 % (27.0-41.0); MEAN CELL VOLUME 84.6 fl (81.0-99.0); MEAN CORPUSCULAR HGB 25.4 pg (27.0-31.0); MEAN PLATELET VOLUME 9.7 fl (9.6-12.3); MONO # 0.5 10*3/uL (0.1-1.0); MONO % 7.6 % (3.0-9.0); NEUT % 65.4 % (47.0-73.0); PLATELET COUNT AUTOMATED 259 10*3/uL (130-400); RED BLOOD COUNT 4.41 10*6/uL (4.10-5.10); RED CELL DISTRI WIDTH 14.3 % (0-14.5); WHITE BLOOD COUNT 6.1 10*3/uL (4.8-10.8)
[2022-06-20 15:09] LABS: INTERNATIONAL NORM RATIO 0.9 (2.0-3.5)
[2022-06-20 15:13] LABS: ALKALINE PHOSPHATASE 62 U/L (46-116); BUN 7 mg/dl (9-23); CHLORIDE 105 mmol/L (98-107); LIPASE 27 U/L (12-53); POTASSIUM 3.3 mmol/L (3.4-5.1); SGPT/ALT 12 U/L (10-49); TOTAL PROTEIN 6.7 gm/dL (6.0-8.0)
[2022-06-20] MEDS ORDERED: PEPCID20 MG PO (16:42)
[2022-06-20] MEDS ORDERED: TOPCARE OMEPRAZ20 MG PO (16:42)
== END 2022-06-20 16:52 | disposition home or self-care (01) ==
LOC: ED 13:20
PROVIDERS: Physician Assistant
DX: K44.9 Diaphragmatic hernia without obstruction or gangrene (principal); F41.9 Anxiety disorder, unspecified; F31.9 Bipolar disorder, unspecified; I10 Essential (primary) hypertension; Z87.442 Personal history of urinary calculi; Z91.041 Radiographic dye allergy status; Z88.8 Allergy status to other drugs, medicaments and biological substances; Z98.890 Other specified postprocedural states; F12.90 Cannabis use, unspecified, uncomplicated; F17.210 Nicotine dependence, cigarettes, uncomplicated

== ENCOUNTER 2022-10-03 08:34 | Emergency (ER) | payer MEDICARE ==
[~2022-10-03] VITALS: Ht 165.1 cm; Wt 94.3 kg
[~2022-10-03 08:34] MED LIST changes: +PEPCID20 MG PO; +TOPCARE OMEPRAZ20 MG PO
[2022-10-03 08:48] VITALS: BP 149/35
[2022-10-03 09:35] LABS: BASO % 0.5 % (0.0-1.0); EOS % 0.1 % (1.0-4.0); HEMATOCRIT 45.5 % (37.0-47.0); LYMPH # 1.3 10*3/uL (1.3-4.4); LYMPH % 16.8 % (27.0-41.0); MEAN CELL VOLUME 85.8 fl (81.0-99.0); MEAN CORPUSCULAR HGB 26.6 pg (27.0-31.0); MEAN PLATELET VOLUME 9.7 fl (9.6-12.3); MONO # 0.5 10*3/uL (0.1-1.0); MONO % 6.3 % (3.0-9.0); NEUT # 5.7 10*3/uL (2.3-7.9); NEUT % 75.9 % (47.0-73.0); PLATELET COUNT AUTOMATED 286 10*3/uL (130-400); RED CELL DISTRI WIDTH 16.6 % (0-14.5); WHITE BLOOD COUNT 7.5 10*3/uL (4.8-10.8)
[2022-10-03 09:46] LABS: ACT PARTIAL THROMBO TIME 26.7 SECONDS (20.0-32.1)
[2022-10-03 09:59] LABS: BILIRUBIN Negative (Negative); BLOOD Negative (Negative); CLARITY Clear (Clear); COLOR Yellow (Yellow); GLUCOSE Negative (Negative); KETONE Trace (Negative); LEUKO ESTERASE Negative (Negative); NITRITE Negative (Negative); SPECIFIC GRAVITY <= 1.005 (1.001-1.030); UROBILINOGEN 0.2 E.U./dl (0.0-1.0)
[2022-10-03 09:59] LABS: ALKALINE PHOSPHATASE 65 U/L (46-116); BUN 6 mg/dl (9-23); CHLORIDE 104 mmol/L (98-107); LIPASE 26 U/L (12-53); POTASSIUM 3.7 mmol/L (3.4-5.1); SGPT/ALT 12 U/L (10-49); TOTAL PROTEIN 7.2 gm/dL (6.0-8.0)
[2022-10-03 10:09] LABS: EPITHELIAL CELLS 0-2; RBC 0-2 rbc/hpf (0-2); WBC 0-2 wbc/hpf (0-5)
[2022-10-03] MEDS ORDERED: REGLAN10 M1 PO (12:02)
== END 2022-10-03 12:18 | disposition home or self-care (01) ==
LOC: ED 08:34
PROVIDERS: Emergency Medicine
DX: B34.9 Viral infection, unspecified (principal); E86.0 Dehydration; I25.2 Old myocardial infarction; I25.10 Atherosclerotic heart disease of native coronary artery without angina pectoris; Z86.718 Personal history of other venous thrombosis and embolism; F41.9 Anxiety disorder, unspecified; I11.0 Hypertensive heart disease with heart failure; F31.9 Bipolar disorder, unspecified; Z87.442 Personal history of urinary calculi; Z88.8 Allergy status to other drugs, medicaments and biological substances; Z91.040 Latex allergy status; Z98.890 Other specified postprocedural states; F12.90 Cannabis use, unspecified, uncomplicated; Z72.0 Tobacco use; Z20.822 Contact with and (suspected) exposure to COVID-19

== ENCOUNTER → 2022-10-20 | Outpatient (CLI) | payer MEDICARE ==
[~2022-10-20] MED LIST changes: +REGLAN10 M1 PO
[2022-10-20 09:50] LABS: HEMATOCRIT 38.8 % (37.0-47.0); MEAN CORPUSCULAR HGB 27.3 pg (27.0-31.0); MEAN CORPUSCULAR HGB CONC 31.7 g/dl (33.0-37.0); PLATELET COUNT AUTOMATED 217 10*3/uL (130-400); RED BLOOD COUNT 4.51 10*6/uL (4.10-5.10); RED CELL DISTRI WIDTH 15.7 % (0-14.5); RETICULOCYTE % 1.95 % (0.50-2.50); WHITE BLOOD COUNT 5.1 10*3/uL (4.8-10.8)
[2022-10-20 09:50] LABS: BILIRUBIN Negative (Negative); BLOOD Negative (Negative); CLARITY Clear (Clear); COLOR Yellow (Yellow); GLUCOSE Negative (Negative); KETONE Negative (Negative); LEUKO ESTERASE Negative (Negative); NITRITE Negative (Negative); SPECIFIC GRAVITY <= 1.005 (1.001-1.030); UROBILINOGEN 0.2 E.U./dl (0.0-1.0)
[2022-10-20 09:56] LABS: EPITHELIAL CELLS 0-2; WBC 0-2 wbc/hpf (0-5)
[2022-10-20 10:15] LABS: BASOPHILS 1 % (0-1); TOTAL CELLS COUNTED 100 #CELLS
[2022-10-20 10:16] LABS: PLATELET SUFFICIENCY NORMAL (NORMAL)
[2022-10-20 10:26] LABS: ALKALINE PHOSPHATASE 63 U/L (46-116); BUN 8 mg/dl (9-23); CHLORIDE 107 mmol/L (98-107); CHOLESTEROL 169 mg/dL (<200); GAMMA GLUTAMYL TRANSPEPTIDASE 21 U/L (0-73); LDL CHOLESTEROL 79 mg/dL (9-159); POTASSIUM 3.9 mmol/L (3.4-5.1); SGPT/ALT 14 U/L (10-49); THYROXINE (T4) TOTAL 7.3 ug/dl (4.5-10.9); TOTAL PROTEIN 6.6 gm/dL (6.0-8.0); TRIGLYCERIDES 187 mg/dl (<150)
[2022-10-20 11:00] LABS: VITAMIN D, 25-HYDROXY 31.6 ng/mL (30-100)
[2022-10-21 03:06] LABS: TOTAL PROTEIN, SERUM 6.2 g/dL (6.0-8.5)
[2022-10-21 15:08] LABS: A/G RATIO 1.2 (0.7-1.7); ALBUMIN 3.4 g/dL (2.9-4.4); ALPHA-1-GLOBULIN 0.3 g/dL (0.0-0.4); ALPHA-2-GLOBULIN 0.9 g/dL (0.4-1.0); ANTI-DSDNA ANTIBODIES <1 IU/mL (0-9); GAMMA GLOBULIN 0.6 g/dL (0.4-1.8); GLOBULIN, TOTAL 2.8 g/dL (2.2-3.9); M-SPIKE Not Observed g/dL (Not Observed)
== END | disposition home or self-care (01) ==
LOC: LAB 08:49
PROVIDERS: ATTEND Family Medicine
DX: E78.5 Hyperlipidemia, unspecified (principal); R53.83 Other fatigue; R79.89 Other specified abnormal findings of blood chemistry; E55.9 Vitamin D deficiency, unspecified

== ENCOUNTER 2022-12-28 16:30 | Emergency (ER) | payer MEDICARE ==
[~2022-12-28] VITALS: Ht 162.5 cm; Wt 91.2 kg
[2022-12-28 17:38] LABS: BASO # 0.1 10*3/uL (0.0-0.1); BASO % 0.7 % (0.0-1.0); EOS # 0.1 10*3/uL (0.0-0.4); EOS % 1.1 % (1.0-4.0); HEMATOCRIT 32.9 % (37.0-47.0); LYMPH % 26.4 % (27.0-41.0); MEAN CELL VOLUME 85.5 fl (81.0-99.0); MEAN CORPUSCULAR HGB CONC 30.4 g/dl (33.0-37.0); MEAN PLATELET VOLUME 9.7 fl (9.6-12.3); MONO # 0.5 10*3/uL (0.1-1.0); MONO % 6.2 % (3.0-9.0); NEUT # 4.9 10*3/uL (2.3-7.9); NEUT % 65.3 % (47.0-73.0); PLATELET COUNT AUTOMATED 291 10*3/uL (130-400); RED BLOOD COUNT 3.85 10*6/uL (4.10-5.10); RED CELL DISTRI WIDTH 13.9 % (0-14.5); WHITE BLOOD COUNT 7.4 10*3/uL (4.8-10.8)
[2022-12-28 18:01] LABS: BUN 9 mg/dl (9-23); CHLORIDE 110 mmol/L (98-107); POTASSIUM 3.3 mmol/L (3.4-5.1)
[2022-12-28 19:35] VITALS: BP 114/46
== END 2022-12-28 20:15 | disposition home or self-care (01) ==
LOC: ED 16:30
PROVIDERS: Physician Assistant Medical
DX: M79.605 Pain in left leg (principal); M79.604 Pain in right leg; R06.2 Wheezing; J44.9 Chronic obstructive pulmonary disease, unspecified; I10 Essential (primary) hypertension; E78.5 Hyperlipidemia, unspecified; F31.9 Bipolar disorder, unspecified; Z87.442 Personal history of urinary calculi; I25.2 Old myocardial infarction; I25.10 Atherosclerotic heart disease of native coronary artery without angina pectoris; F41.9 Anxiety disorder, unspecified; I82.629 Acute embolism and thrombosis of deep veins of unspecified upper extremity; Z88.8 Allergy status to other drugs, medicaments and biological substances; Z91.040 Latex allergy status; Z95.5 Presence of coronary angioplasty implant and graft; Z98.890 Other specified postprocedural states; F12.90 Cannabis use, unspecified, uncomplicated; F17.290 Nicotine dependence, other tobacco product, uncomplicated

== ENCOUNTER 2023-06-09 10:10 | Emergency (ER) | payer OTHER ==
[~2023-06-09] VITALS: Ht 162.5 cm; Wt 86.2 kg
[~2023-06-09 10:10] MED LIST changes: +CLONAZEPAM0.5 M2 PO
[2023-06-09 10:25] VITALS: BP 128/62
[2023-06-09] MEDS ORDERED: ELIQUIS2.5 M1 PO (11:08)
[2023-06-09 11:11] LABS: BASO % 0.6 % (0.0-1.0); EOS % 0.2 % (1.0-4.0); HEMATOCRIT 33.4 % (37.0-47.0); LYMPH % 20.6 % (27.0-41.0); MEAN CELL VOLUME 79.9 fl (81.0-99.0); MEAN CORPUSCULAR HGB 22.7 pg (27.0-31.0); MEAN CORPUSCULAR HGB CONC 28.4 g/dl (33.0-37.0); MEAN PLATELET VOLUME 9.6 fl (9.6-12.3); MONO # 0.3 10*3/uL (0.1-1.0); MONO % 6.5 % (3.0-9.0); NEUT # 3.5 10*3/uL (2.3-7.9); NEUT % 71.9 % (47.0-73.0); PLATELET COUNT AUTOMATED 289 10*3/uL (130-400); RED BLOOD COUNT 4.18 10*6/uL (4.10-5.10); WHITE BLOOD COUNT 4.9 10*3/uL (4.8-10.8)
[2023-06-09] MEDS ORDERED: IOHEXOL 350 MG/ML 100 ML VIAL IV ONE ×2 (11:20→11:30)
[2023-06-09] MEDS ORDERED: SODIUM CHLORIDE 0.9% 100 ML BAG IV ONE (11:20)
[2023-06-09 11:27] LABS: BILIRUBIN Negative (Negative); BLOOD Negative (Negative); CLARITY Clear (Clear); COLOR Yellow (Yellow); GLUCOSE Negative (Negative); KETONE Negative (Negative); LEUKO ESTERASE Negative (Negative); NITRITE Negative (Negative); SPECIFIC GRAVITY <= 1.005 (1.001-1.030); UROBILINOGEN 0.2 E.U./dl (0.0-1.0)
[2023-06-09] MEDS ORDERED: SODIUM CHLORIDE 0.9% 100 ML IV ONE (11:30)
[2023-06-09 11:35] LABS: RBC 0-2 rbc/hpf (0-2); WBC 0-2 wbc/hpf (0-5)
[2023-06-09 11:36] LABS: ALKALINE PHOSPHATASE 56 U/L (46-116); BUN 9 mg/dl (9-23); CHLORIDE 105 mmol/L (98-107); LIPASE 25 U/L (12-53); POTASSIUM 3.5 mmol/L (3.4-5.1); SGPT/ALT 22 U/L (5-49); TOTAL PROTEIN 6.8 gm/dL (6.0-8.0)
[2023-06-09] MEDS ORDERED: Ondansetron Hydrochloride 4 MG TAB SL ONE (13:35)
== END 2023-06-09 14:18 | disposition home or self-care (01) ==
LOC: ED 10:10
PROVIDERS: Internal Medicine
DX: R10.9 Unspecified abdominal pain (principal); R11.0 Nausea; R63.0 Anorexia; R07.89 Other chest pain; J44.9 Chronic obstructive pulmonary disease, unspecified; I25.10 Atherosclerotic heart disease of native coronary artery without angina pectoris; F17.200 Nicotine dependence, unspecified, uncomplicated; Z91.048 Other nonmedicinal substance allergy status; Z88.8 Allergy status to other drugs, medicaments and biological substances; Z91.040 Latex allergy status; Z79.899 Other long term (current) drug therapy; Z98.890 Other specified postprocedural states

== ENCOUNTER 2023-08-03 13:38 | Emergency (ER) | payer OTHER ==
[~2023-08-03] VITALS: Ht 165.1 cm; Wt 86.2 kg
[~2023-08-03 13:38] MED LIST changes: +ELIQUIS2.5 M1 PO
[2023-08-03] MEDS ORDERED: ELIQUIS5 M1 PO (13:55)
[2023-08-03] MEDS ORDERED: LINZESS145 MC1 PO (13:55)
[2023-08-03 13:56] VITALS: BP 122/74
[2023-08-03 14:20] LABS: BASO % 0.6 % (0.0-1.0); EOS % 0.2 % (1.0-4.0); HEMATOCRIT 46.7 % (37.0-47.0); LYMPH # 1.6 10*3/uL (1.3-4.4); LYMPH % 24.5 % (27.0-41.0); MEAN CELL VOLUME 86.6 fl (81.0-99.0); MEAN CORPUSCULAR HGB 26.7 pg (27.0-31.0); MEAN CORPUSCULAR HGB CONC 30.8 g/dl (33.0-37.0); MEAN PLATELET VOLUME 9.7 fl (9.6-12.3); MONO # 0.3 10*3/uL (0.1-1.0); MONO % 5.1 % (3.0-9.0); NEUT # 4.5 10*3/uL (2.3-7.9); NEUT % 69.3 % (47.0-73.0); PLATELET COUNT AUTOMATED 199 10*3/uL (130-400); RED BLOOD COUNT 5.39 10*6/uL (4.10-5.10); RED CELL DISTRI WIDTH 18.4 % (0-14.5); WHITE BLOOD COUNT 6.5 10*3/uL (4.8-10.8)
[2023-08-03 14:21] LABS: BILIRUBIN Negative (Negative); BLOOD Negative (Negative); CLARITY Clear (Clear); COLOR Yellow (Yellow); GLUCOSE Negative (Negative); KETONE Negative (Negative); LEUKO ESTERASE Negative (Negative); NITRITE Negative (Negative); PH 6.5 (4.5-8.0); SPECIFIC GRAVITY <= 1.005 (1.001-1.030); UROBILINOGEN 0.2 E.U./dl (0.0-1.0)
[2023-08-03 14:31] LABS: ACT PARTIAL THROMBO TIME 29.6 SECONDS (20.0-32.1)
[2023-08-03 14:37] LABS: EPITHELIAL CELLS 0-2; WBC 0-2 wbc/hpf (0-5)
[2023-08-03 14:38] LABS: BUN 7 mg/dl (9-23); CHLORIDE 106 mmol/L (98-107); POTASSIUM 3.5 mmol/L (3.4-5.1)
[2023-08-03] MEDS ORDERED: Ondansetron Hydrochloride 4 MG TAB PO ONE (15:30)
[2023-08-03] MEDS ORDERED: Acetaminophen/Hydrocodone 5 MG/325 MG TABLET PO ONE (15:30)
== END 2023-08-03 17:40 | disposition home or self-care (01) ==
LOC: ED 13:38
PROVIDERS: Internal Medicine; Student in an Organized Health Care Education/Training Program
DX: R07.89 Other chest pain (principal); R51.9 Headache, unspecified; M54.2 Cervicalgia; I25.2 Old myocardial infarction; I25.10 Atherosclerotic heart disease of native coronary artery without angina pectoris; F41.9 Anxiety disorder, unspecified; I10 Essential (primary) hypertension; F31.9 Bipolar disorder, unspecified; Z87.442 Personal history of urinary calculi; Z88.8 Allergy status to other drugs, medicaments and biological substances; Z86.718 Personal history of other venous thrombosis and embolism; Z91.040 Latex allergy status; Z98.890 Other specified postprocedural states; Z95.5 Presence of coronary angioplasty implant and graft; F12.90 Cannabis use, unspecified, uncomplicated; Z72.0 Tobacco use

== ENCOUNTER 2023-08-06 08:57 | Emergency (ER) | payer OTHER ==
[~2023-08-06] VITALS: Ht 5516 cm; Wt 82.1 kg
[~2023-08-06 08:57] MED LIST changes: +ELIQUIS5 M1 PO; +LINZESS145 MC1 PO
[2023-08-06] MEDS ORDERED: SODIUM CHLORIDE 0.9% 1,000 ML IV ONE (09:35)
[2023-08-06] MEDS ORDERED: DIAZEPAM 5 MG TAB PO ONE (09:35)
[2023-08-06 09:56] LABS: BASO % 0.6 % (0.0-1.0); EOS % 0.2 % (1.0-4.0); HEMATOCRIT 47.1 % (37.0-47.0); LYMPH # 1.1 10*3/uL (1.3-4.4); LYMPH % 17.2 % (27.0-41.0); MEAN CELL VOLUME 87.1 fl (81.0-99.0); MEAN CORPUSCULAR HGB 26.6 pg (27.0-31.0); MEAN CORPUSCULAR HGB CONC 30.6 g/dl (33.0-37.0); MEAN PLATELET VOLUME 9.8 fl (9.6-12.3); MONO # 0.3 10*3/uL (0.1-1.0); MONO % 4.7 % (3.0-9.0); NEUT # 5.1 10*3/uL (2.3-7.9); PLATELET COUNT AUTOMATED 188 10*3/uL (130-400); RED BLOOD COUNT 5.41 10*6/uL (4.10-5.10); RED CELL DISTRI WIDTH 18.2 % (0-14.5); WHITE BLOOD COUNT 6.6 10*3/uL (4.8-10.8)
[2023-08-06 10:22] LABS: ALKALINE PHOSPHATASE 62 U/L (46-116); CHLORIDE 107 mmol/L (98-107); LIPASE 34 U/L (12-53); POTASSIUM 3.8 mmol/L (3.4-5.1); SGPT/ALT 14 U/L (5-49); TOTAL PROTEIN 6.9 gm/dL (6.0-8.0)
[2023-08-06] MEDS ORDERED: FEROSUL325 MG PO (10:23)
[2023-08-06 10:32] LABS: BUN < 5 mg/dl (9-23)
[2023-08-06 11:02] LABS: BILIRUBIN Negative (Negative); BLOOD Negative (Negative); CLARITY Clear (Clear); COLOR Yellow (Yellow); GLUCOSE Negative (Negative); KETONE 2+ (Negative); LEUKO ESTERASE Negative (Negative); NITRITE Negative (Negative); PH 7.5 (4.5-8.0); SPECIFIC GRAVITY <= 1.005 (1.001-1.030); UROBILINOGEN 0.2 E.U./dl (0.0-1.0)
[2023-08-06 13:09] VITALS: BP 122/49
== END 2023-08-06 13:10 | disposition home or self-care (01) ==
LOC: ED 08:57
PROVIDERS: Internal Medicine
DX: F41.0 Panic disorder [episodic paroxysmal anxiety] (principal); Z20.822 Contact with and (suspected) exposure to COVID-19; I25.2 Old myocardial infarction; I10 Essential (primary) hypertension; F31.9 Bipolar disorder, unspecified; Z87.442 Personal history of urinary calculi; I25.10 Atherosclerotic heart disease of native coronary artery without angina pectoris; Z72.0 Tobacco use; Z86.718 Personal history of other venous thrombosis and embolism; Z88.8 Allergy status to other drugs, medicaments and biological substances; Z91.040 Latex allergy status; Z95.5 Presence of coronary angioplasty implant and graft; Z98.890 Other specified postprocedural states; F12.90 Cannabis use, unspecified, uncomplicated

== ENCOUNTER → 2023-08-11 | Outpatient (CLI) | payer OTHER ==
[~2023-08-11] MED LIST changes: +FEROSUL325 MG PO
== END | disposition home or self-care (01) ==
LOC: US 09:39
PROVIDERS: ATTEND Family Medicine
DX: Z86.718 Personal history of other venous thrombosis and embolism (principal)

== ENCOUNTER 2023-10-05 16:03 | Emergency (ER) | payer OTHER ==
[~2023-10-05] VITALS: Ht 162.5 cm; Wt 86.2 kg
[2023-10-05 17:06] VITALS: BP 110/50
[2023-10-05] MEDS ORDERED: SODIUM CHLORIDE 0.9% 1,000 ML IV ONE (18:05)
[2023-10-05] MEDS ORDERED: Acetaminophen/Hydrocodone 5 MG/325 MG TABLET PO ONE (18:05)
[2023-10-05] MEDS ORDERED: Albuterol Sulf/Ipratropium 3 ML VIAL NEB ONE (18:10)
[2023-10-05] MEDS ORDERED: methylPREDNISolone sod succ 125 MG VIAL IV ONE (18:10)
[2023-10-05] MEDS ORDERED: IOHEXOL 350 MG/ML 100 ML VIAL IV ONE (18:15)
[2023-10-05] MEDS ORDERED: SODIUM CHLORIDE 0.9% 100 ML BAG IV ONE (18:15)
[2023-10-05 18:25] LABS: BASO % 0.5 % (0.0-1.0); EOS % 0.3 % (1.0-4.0); HEMATOCRIT 40.2 % (37.0-47.0); LYMPH # 1.7 10*3/uL (1.3-4.4); LYMPH % 26.7 % (27.0-41.0); MEAN CELL VOLUME 92.4 fl (81.0-99.0); MEAN CORPUSCULAR HGB CONC 31.3 g/dl (33.0-37.0); MEAN PLATELET VOLUME 9.6 fl (9.6-12.3); MONO # 0.4 10*3/uL (0.1-1.0); MONO % 6.2 % (3.0-9.0); NEUT # 4.3 10*3/uL (2.3-7.9); NEUT % 66.1 % (47.0-73.0); PLATELET COUNT AUTOMATED 191 10*3/uL (130-400); RED BLOOD COUNT 4.35 10*6/uL (4.10-5.10); RED CELL DISTRI WIDTH 14.3 % (0-14.5); WHITE BLOOD COUNT 6.5 10*3/uL (4.8-10.8)
[2023-10-05 18:42] LABS: ACT PARTIAL THROMBO TIME 25.8 SECONDS (20.0-32.1)
[2023-10-05 18:45] LABS: ALKALINE PHOSPHATASE 56 U/L (46-116); BUN 7 mg/dl (9-23); CHLORIDE 106 mmol/L (98-107); LIPASE 37 U/L (12-53); POTASSIUM 3.6 mmol/L (3.4-5.1); SGPT/ALT 14 U/L (5-49); TOTAL PROTEIN 6.4 gm/dL (6.0-8.0)
[2023-10-05] MEDS ORDERED: PREDNISONE20 M1 PO (22:56)
== END 2023-10-05 23:17 | disposition home or self-care (01) ==
LOC: ED 16:03
PROVIDERS: Physician Assistant
DX: R09.1 Pleurisy (principal); F12.90 Cannabis use, unspecified, uncomplicated; Z72.0 Tobacco use; Z88.8 Allergy status to other drugs, medicaments and biological substances; Z91.040 Latex allergy status; Z95.5 Presence of coronary angioplasty implant and graft; Z98.890 Other specified postprocedural states

== ENCOUNTER 2023-10-08 23:28 | Emergency (ER) | payer OTHER ==
[~2023-10-08] VITALS: Ht 162.5 cm; Wt 86.2 kg
[~2023-10-08 23:28] MED LIST changes: +PREDNISONE20 M1 PO
[2023-10-08 23:43] VITALS: BP 124/52
[2023-10-08] MEDS ORDERED: Albuterol Sulf/Ipratropium 3 ML VIAL NEB ONE (23:55)
[2023-10-09 00:23] LABS: BASO # 0.1 10*3/uL (0.0-0.1); BASO % 0.6 % (0.0-1.0); EOS % 0.4 % (1.0-4.0); HEMATOCRIT 41.6 % (37.0-47.0); LYMPH # 2.9 10*3/uL (1.3-4.4); LYMPH % 35.6 % (27.0-41.0); MEAN CELL VOLUME 90.2 fl (81.0-99.0); MEAN CORPUSCULAR HGB 29.1 pg (27.0-31.0); MEAN CORPUSCULAR HGB CONC 32.2 g/dl (33.0-37.0); MEAN PLATELET VOLUME 9.6 fl (9.6-12.3); MONO # 0.6 10*3/uL (0.1-1.0); MONO % 6.9 % (3.0-9.0); NEUT # 4.6 10*3/uL (2.3-7.9); NEUT % 56.1 % (47.0-73.0); PLATELET COUNT AUTOMATED 207 10*3/uL (130-400); RED BLOOD COUNT 4.61 10*6/uL (4.10-5.10); WHITE BLOOD COUNT 8.2 10*3/uL (4.8-10.8)
[2023-10-09 00:34] LABS: ACT PARTIAL THROMBO TIME 24.6 SECONDS (20.0-32.1)
[2023-10-09 00:43] LABS: BILIRUBIN Negative (Negative); BLOOD Negative (Negative); CLARITY Clear (Clear); COLOR Yellow (Yellow); GLUCOSE Negative (Negative); KETONE Trace (Negative); LEUKO ESTERASE Trace (Negative); NITRITE Negative (Negative)
[2023-10-09 00:43] LABS: ALKALINE PHOSPHATASE 51 U/L (46-116); BUN 8 mg/dl (9-23); CHLORIDE 107 mmol/L (98-107); POTASSIUM 3.2 mmol/L (3.4-5.1); SGPT/ALT 12 U/L (5-49); TOTAL PROTEIN 6.4 gm/dL (6.0-8.0)
[2023-10-09 00:49] LABS: BACTERIA 1+; MUCOUS 1+; RBC 0-2 rbc/hpf (0-2)
[2023-10-09] MEDS ORDERED: ZITHROMAX250 MG PO (03:38)
[2023-10-09] MEDS ORDERED: EXPECTORANT200 MG PO (03:38)
== END 2023-10-09 04:15 | disposition home or self-care (01) ==
LOC: ED 23:28
PROVIDERS: Internal Medicine
DX: J40 Bronchitis, not specified as acute or chronic (principal); I25.2 Old myocardial infarction; I25.10 Atherosclerotic heart disease of native coronary artery without angina pectoris; F41.9 Anxiety disorder, unspecified; F31.9 Bipolar disorder, unspecified; Z87.442 Personal history of urinary calculi; I10 Essential (primary) hypertension; F12.90 Cannabis use, unspecified, uncomplicated; Z72.0 Tobacco use; Z88.8 Allergy status to other drugs, medicaments and biological substances; Z91.040 Latex allergy status; Z98.890 Other specified postprocedural states; Z95.5 Presence of coronary angioplasty implant and graft

== ENCOUNTER 2024-01-18 14:54 | Emergency (ER) | payer OTHER ==
[~2024-01-18] VITALS: Wt 81.6 kg
[~2024-01-18 14:54] MED LIST changes: +EXPECTORANT200 MG PO
[2024-01-18 15:20] LABS: BASO % 0.3 % (0.0-1.0); EOS % 0.3 % (1.0-4.0); HEMATOCRIT 43.4 % (37.0-47.0); LYMPH # 1.4 10*3/uL (1.3-4.4); LYMPH % 24.5 % (27.0-41.0); MEAN CELL VOLUME 88.2 fl (81.0-99.0); MEAN CORPUSCULAR HGB CONC 31.8 g/dl (33.0-37.0); MEAN PLATELET VOLUME 9.4 fl (9.6-12.3); MONO # 0.4 10*3/uL (0.1-1.0); MONO % 7.3 % (3.0-9.0); NEUT # 3.9 10*3/uL (2.3-7.9); NEUT % 67.4 % (47.0-73.0); PLATELET COUNT AUTOMATED 188 10*3/uL (130-400); RED BLOOD COUNT 4.92 10*6/uL (4.10-5.10); RED CELL DISTRI WIDTH 13.1 % (0-14.5); WHITE BLOOD COUNT 5.8 10*3/uL (4.8-10.8)
[2024-01-18 15:32] LABS: ACT PARTIAL THROMBO TIME 27.4 SECONDS (20.0-32.1)
[2024-01-18 15:50] LABS: ALKALINE PHOSPHATASE 61 U/L (46-116); CHLORIDE 107 mmol/L (98-107); POTASSIUM 3.5 mmol/L (3.4-5.1); SGPT/ALT 10 U/L (5-49); TOTAL PROTEIN 6.7 gm/dL (6.0-8.0)
[2024-01-18 15:51] LABS: BUN < 5 mg/dl (9-23)
[2024-01-18] MEDS ORDERED: Albuterol Sulf/Ipratropium 3 ML VIAL NEB ONE (15:55)
[2024-01-18] MEDS ORDERED: methylPREDNISolone sod succ 125 MG VIAL IM ONE (15:55)
[2024-01-18 17:00] VITALS: BP 129/77
[2024-01-18] MEDS ORDERED: AVPAK AZITHROM250 M1 PO (17:33)
[2024-01-18] MEDS ORDERED: AZITHROMYCIN 250 MG TAB PO ONE (17:35)
== END 2024-01-18 17:51 | disposition home or self-care (01) ==
LOC: ED 14:54
PROVIDERS: Internal Medicine
DX: J44.1 Chronic obstructive pulmonary disease with (acute) exacerbation (principal); R07.89 Other chest pain; I25.2 Old myocardial infarction; I25.10 Atherosclerotic heart disease of native coronary artery without angina pectoris; Z86.718 Personal history of other venous thrombosis and embolism; F41.9 Anxiety disorder, unspecified; F31.9 Bipolar disorder, unspecified; Z87.442 Personal history of urinary calculi; Z88.8 Allergy status to other drugs, medicaments and biological substances; Z91.040 Latex allergy status; K21.9 Gastro-esophageal reflux disease without esophagitis; E78.5 Hyperlipidemia, unspecified; E78.00 Pure hypercholesterolemia, unspecified; I10 Essential (primary) hypertension; F12.90 Cannabis use, unspecified, uncomplicated; F17.290 Nicotine dependence, other tobacco product, uncomplicated; Z98.890 Other specified postprocedural states; Z95.5 Presence of coronary angioplasty implant and graft

== ENCOUNTER 2024-01-30 15:09 | Emergency (ER) | payer OTHER ==
[~2024-01-30] VITALS: Ht 162.5 cm; Wt 81.6 kg
[2024-01-30 15:24] VITALS: BP 98/56
== END 2024-01-30 15:35 | disposition left against medical advice (07) ==
LOC: ED 15:09
DX: Z00.01 Encounter for general adult medical examination with abnormal findings (principal); I25.2 Old myocardial infarction; I25.10 Atherosclerotic heart disease of native coronary artery without angina pectoris; Z86.718 Personal history of other venous thrombosis and embolism; F41.9 Anxiety disorder, unspecified; I10 Essential (primary) hypertension; F31.9 Bipolar disorder, unspecified; Z87.442 Personal history of urinary calculi; Z88.8 Allergy status to other drugs, medicaments and biological substances; Z91.040 Latex allergy status; Z53.21 Procedure and treatment not carried out due to patient leaving prior to being seen by health care provider

== ENCOUNTER 2024-03-02 10:40 | Emergency (ER) | payer OTHER ==
[~2024-03-02] VITALS: Ht 162.5 cm; Wt 83.9 kg
[~2024-03-02 10:40] MED LIST changes: +MUCINEX1200 M1 PO; +PREDNISONE50 MG PO
[2024-03-02 10:49] VITALS: BP 112/63
[2024-03-02] MEDS ORDERED: MORPHINE Sulfate 2 MG/ML SYR IV ONE (11:00)
[2024-03-02] MEDS ORDERED: Ketorolac Tromethamine 15 MG/ML VIAL IV ONE (11:00)
[2024-03-02] MEDS ORDERED: SODIUM CHLORIDE 0.9% 1,000 ML IV ONE (11:00)
[2024-03-02 11:15] LABS: BASO % 0.5 % (0.0-1.0); EOS % 0.7 % (1.0-4.0); HEMATOCRIT 43.9 % (37.0-47.0); MEAN CELL VOLUME 90.7 fl (81.0-99.0); MEAN CORPUSCULAR HGB 28.1 pg (27.0-31.0); MEAN PLATELET VOLUME 9.4 fl (9.6-12.3); MONO # 0.5 10*3/uL (0.1-1.0); MONO % 8.1 % (3.0-9.0); NEUT # 3.2 10*3/uL (2.3-7.9); NEUT % 57.9 % (47.0-73.0); PLATELET COUNT AUTOMATED 182 10*3/uL (130-400); RED BLOOD COUNT 4.84 10*6/uL (4.10-5.10); RED CELL DISTRI WIDTH 14.3 % (0-14.5); WHITE BLOOD COUNT 5.6 10*3/uL (4.8-10.8)
[2024-03-02] MEDS ORDERED: Ondansetron Hydrochloride 4 MG/2 ML VIAL IV ONE (11:25)
[2024-03-02 11:34] LABS: BUN 7 mg/dl (9-23); CHLORIDE 105 mmol/L (98-107); POTASSIUM 3.6 mmol/L (3.4-5.1)
== END 2024-03-02 12:01 | disposition home or self-care (01) ==
LOC: ED 10:40
PROVIDERS: Emergency Medicine
DX: R07.89 Other chest pain (principal); J44.9 Chronic obstructive pulmonary disease, unspecified; I10 Essential (primary) hypertension; E78.5 Hyperlipidemia, unspecified; I25.10 Atherosclerotic heart disease of native coronary artery without angina pectoris; I25.2 Old myocardial infarction; F41.9 Anxiety disorder, unspecified; F31.9 Bipolar disorder, unspecified; F12.90 Cannabis use, unspecified, uncomplicated; Z72.0 Tobacco use; Z87.442 Personal history of urinary calculi; Z86.718 Personal history of other venous thrombosis and embolism; Z88.8 Allergy status to other drugs, medicaments and biological substances; Z91.040 Latex allergy status; Z95.5 Presence of coronary angioplasty implant and graft; Z98.890 Other specified postprocedural states

== ENCOUNTER 2024-05-11 11:23 | Emergency (ER) | payer OTHER ==
[~2024-05-11] VITALS: Ht 162.5 cm; Wt 82.2 kg
[2024-05-11] MEDS ORDERED: Albuterol Sulfate 2.5 MG/3 ML VIAL NEB ONE ×2 (11:50→12:55)
[2024-05-11] MEDS ORDERED: methylPREDNISolone sod succ 125 MG VIAL IV ONE (11:50)
[2024-05-11] MEDS ORDERED: AZITHROMYCIN 250 MG TAB PO ONE (11:55)
[2024-05-11] MEDS ORDERED: MAGNESIUM SULFATE 50 ML IV ONE (11:55)
[2024-05-11 12:09] LABS: BASO % 0.3 % (0.0-1.0); MEAN CELL VOLUME 89.6 fl (81.0-99.0); MEAN CORPUSCULAR HGB 28.6 pg (27.0-31.0); MEAN CORPUSCULAR HGB CONC 31.9 g/dl (33.0-37.0); MEAN PLATELET VOLUME 9.6 fl (9.6-12.3); MONO # 0.4 10*3/uL (0.1-1.0); MONO % 10.8 % (3.0-9.0); NEUT # 2.6 10*3/uL (2.3-7.9); NEUT % 73.8 % (47.0-73.0); PLATELET COUNT AUTOMATED 135 10*3/uL (130-400); RED BLOOD COUNT 4.69 10*6/uL (4.10-5.10); RED CELL DISTRI WIDTH 13.7 % (0-14.5); WHITE BLOOD COUNT 3.5 10*3/uL (4.8-10.8)
[2024-05-11 12:28] LABS: BUN 7 mg/dl (9-23); CHLORIDE 104 mmol/L (98-107); POTASSIUM 3.8 mmol/L (3.4-5.1)
[2024-05-11] MEDS ORDERED: PREDNISONE20 M1 PO (12:54)
[2024-05-11] MEDS ORDERED: AVPAK AZITHROM250 M1 PO (12:55)
== END 2024-05-11 14:03 | disposition home or self-care (01) ==
LOC: ED 11:23
PROVIDERS: Emergency Medicine
DX: J45.901 Unspecified asthma with (acute) exacerbation (principal); J44.9 Chronic obstructive pulmonary disease, unspecified; I25.2 Old myocardial infarction; I10 Essential (primary) hypertension; K21.9 Gastro-esophageal reflux disease without esophagitis; E78.5 Hyperlipidemia, unspecified; I25.10 Atherosclerotic heart disease of native coronary artery without angina pectoris; Z86.718 Personal history of other venous thrombosis and embolism; F41.9 Anxiety disorder, unspecified; F31.9 Bipolar disorder, unspecified; F12.90 Cannabis use, unspecified, uncomplicated; Z72.0 Tobacco use; Z88.8 Allergy status to other drugs, medicaments and biological substances; Z91.048 Other nonmedicinal substance allergy status; Z91.040 Latex allergy status; Z91.018 Allergy to other foods; Z95.5 Presence of coronary angioplasty implant and graft; Z98.890 Other specified postprocedural states

== ENCOUNTER 2024-05-11 18:34 | Inpatient (IN) | payer OTHER ==
[~2024-05-11] VITALS: Ht 162.6 cm; Wt 81.2 kg
[2024-05-11 18:42] VITALS: BP 138/67
[2024-05-11] MEDS ORDERED: methylPREDNISolone sod succ 125 MG VIAL IV ONE (18:50)
[2024-05-11] MEDS ORDERED: Albuterol Sulfate 2.5 MG/3 ML VIAL NEB ONE (18:50)
[2024-05-11] MEDS ORDERED: ACETAMINOPHEN 325 MG TAB PO PRN (19:35)
[2024-05-11] MEDS ORDERED: Ondansetron Hydrochloride 4 MG/2 ML VIAL IV PRN (19:35)
[2024-05-11] MEDS ORDERED: SODIUM CHLORIDE 0.9% 1,000 ML IV SCH (20:40)
[2024-05-11] MEDS ORDERED: Albuterol Sulf/Ipratropium 3 ML VIAL NEB SCH (20:45)
[2024-05-11 21:17] VITALS: BP 113/59
[2024-05-11] MEDS ORDERED: SODIUM CHLORIDE 0.9% 100 ML BAG IV ONE (21:50)
[2024-05-11] MEDS ORDERED: IOHEXOL 350 MG/ML 100 ML VIAL IV ONE (21:50)
[2024-05-11] MEDS ORDERED: GUAIFENESIN 600 MG TAB ER PO SCH (22:00)
[2024-05-11] MEDS ORDERED: Ceftriaxone Sodium 1 GM in SYRINGE INFUSION 10 ML IV SCH (23:00)
[2024-05-12 00:48] VITALS: BP 102/50
[2024-05-12] MEDS ORDERED: methylPREDNISolone sod succ 40 MG VIAL IV SCH (01:00)
[2024-05-12] MEDS ORDERED: OMEPRAZOLE 20 MG CAP PO SCH (06:00)
[2024-05-12 06:43] LABS: HEMATOCRIT 44.4 % (37.0-47.0); MEAN CELL VOLUME 90.8 fl (81.0-99.0); MEAN CORPUSCULAR HGB 28.6 pg (27.0-31.0); MEAN CORPUSCULAR HGB CONC 31.5 g/dl (33.0-37.0); MEAN PLATELET VOLUME 10.2 fl (9.6-12.3); MONO # 0.1 10*3/uL (0.1-1.0); MONO % 5.4 % (3.0-9.0); NEUT # 1.9 10*3/uL (2.3-7.9); NEUT % 76.8 % (47.0-73.0); PLATELET COUNT AUTOMATED 143 10*3/uL (130-400); RED BLOOD COUNT 4.89 10*6/uL (4.10-5.10); RED CELL DISTRI WIDTH 13.7 % (0-14.5); WHITE BLOOD COUNT 2.4 10*3/uL (4.8-10.8)
[2024-05-12 06:44] LABS: ALKALINE PHOSPHATASE 55 U/L (46-116); BUN 9 mg/dl (9-23); CHLORIDE 106 mmol/L (98-107); POTASSIUM 4.1 mmol/L (3.4-5.1); SGPT/ALT 12 U/L (5-49); TOTAL PROTEIN 6.5 gm/dL (6.0-8.0)
[2024-05-12 08:00] VITALS: BP 115/41
[2024-05-12] MEDS ORDERED: RISPERIDONE 0.5 MG TAB PO SCH (10:00)
[2024-05-12] MEDS ORDERED: LISINOPRIL 5 MG TAB PO SCH (10:00)
[2024-05-12] MEDS ORDERED: clonAZEPAM 0.5 MG TAB PO SCH (10:00)
[2024-05-12] MEDS ORDERED: EZETIMIBE 10 MG TAB PO SCH (10:00)
[2024-05-12] MEDS ORDERED: Sertraline Hydrochloride 50 MG TAB PO SCH (10:00)
[2024-05-12] MEDS ORDERED: APIXABAN 5 MG TAB PO SCH (10:00)
[2024-05-12 10:07] LABS: BILIRUBIN Negative (Negative); BLOOD Negative (Negative); CLARITY Clear (Clear); COLOR Yellow (Yellow); GLUCOSE Negative (Negative); KETONE 1+ (Negative); LEUKO ESTERASE Negative (Negative); NITRITE Negative (Negative); UROBILINOGEN 0.2 E.U./dl (0.0-1.0)
[2024-05-12 10:42] LABS: BACTERIA TRACE; RBC 0-2 rbc/hpf (0-2); WBC 0-2 wbc/hpf (0-5)
[2024-05-12 12:00] VITALS: BP 141/53
[2024-05-12 16:00] VITALS: BP 118/52
[2024-05-12 20:00] VITALS: BP 106/53; BP 116/51
[2024-05-12] MEDS ORDERED: AZITHROMYCIN 250 ML IV SCH (22:00)
[2024-05-13] VITALS: BP 119/66
[2024-05-13 06:30] LABS: BUN 10 mg/dl (9-23); CHLORIDE 106 mmol/L (98-107); POTASSIUM 4.4 mmol/L (3.4-5.1)
[2024-05-13 06:37] LABS: BASO % 0.2 % (0.0-1.0); HEMATOCRIT 44.8 % (37.0-47.0); MEAN CELL VOLUME 90.9 fl (81.0-99.0); MEAN CORPUSCULAR HGB 28.4 pg (27.0-31.0); MEAN CORPUSCULAR HGB CONC 31.3 g/dl (33.0-37.0); MEAN PLATELET VOLUME 10.3 fl (9.6-12.3); MONO # 0.3 10*3/uL (0.1-1.0); MONO % 5.8 % (3.0-9.0); NEUT # 4.8 10*3/uL (2.3-7.9); NEUT % 83.8 % (47.0-73.0); PLATELET COUNT AUTOMATED 149 10*3/uL (130-400); RED BLOOD COUNT 4.93 10*6/uL (4.10-5.10); WHITE BLOOD COUNT 5.7 10*3/uL (4.8-10.8)
[2024-05-13 08:00] VITALS: BP 128/50
[2024-05-13] MEDS ORDERED: ZITHROMAX250 MG PO (11:59)
[2024-05-13] MEDS ORDERED: PREDNISONE10 MG PO (11:59)
[2024-05-13] MEDS ORDERED: AEROECLIPSE II1 EACH MC (11:59)
[2024-05-13] MEDS ORDERED: Ipratropium Brom3 ML INH (11:59)
[2024-05-13 12:00] VITALS: BP 145/74
[2024-05-13] MEDS ORDERED: [UNRECOGNIZED DRUG - OTHER] MC (12:33)
[2024-05-13] MEDS ORDERED: HYDROmorphONE Hydrochloride 0.5 MG/0.5 ML SYRINGE IV ONE (14:15)
[2024-05-13 14:29] LABS: LIPASE 28 U/L (12-53)
[2024-05-13] MEDS ORDERED: SUCRALFATE 1 GM TAB PO SCH (16:30)
[2024-05-13] MEDS ORDERED: Dicyclomine Hydrochloride 10 MG CAP PO SCH (18:00)
== END 2024-05-13 13:05 | disposition home or self-care (01) | DRG 871 ==
LOC: ED 18:34 → EDHOLD 18:48 → 4E 23:35
PROVIDERS: Internal Medicine; Student in an Organized Health Care Education/Training Program; ADMIT Internal Medicine; ATTEND Internal Medicine
DX: A41.9 Sepsis, unspecified organism (principal); J96.01 Acute respiratory failure with hypoxia; J44.1 Chronic obstructive pulmonary disease with (acute) exacerbation; J98.4 Other disorders of lung; R73.9 Hyperglycemia, unspecified; F17.210 Nicotine dependence, cigarettes, uncomplicated; I10 Essential (primary) hypertension; K21.9 Gastro-esophageal reflux disease without esophagitis; E78.49 Other hyperlipidemia; E55.9 Vitamin D deficiency, unspecified; K44.9 Diaphragmatic hernia without obstruction or gangrene; F41.9 Anxiety disorder, unspecified; I25.10 Atherosclerotic heart disease of native coronary artery without angina pectoris; F32.9 Major depressive disorder, single episode, unspecified; J40 Bronchitis, not specified as acute or chronic; Z71.6 Tobacco abuse counseling; Z82.49 Family history of ischemic heart disease and other diseases of the circulatory system; Z83.3 Family history of diabetes mellitus; Z88.8 Allergy status to other drugs, medicaments and biological substances; Z79.899 Other long term (current) drug therapy

== ENCOUNTER → 2024-08-01 | Outpatient (CLI) | payer OTHER ==
[~2024-08-01] MED LIST changes: +AEROECLIPSE II1 EACH MC; +Ipratropium Brom3 ML INH; +[UNRECOGNIZED DRUG - OTHER] MC
== END | disposition home or self-care (01) ==
LOC: RAD 11:28
PROVIDERS: ATTEND Family Medicine
DX: M47.812 Spondylosis without myelopathy or radiculopathy, cervical region (principal); M48.02 Spinal stenosis, cervical region; M25.78 Osteophyte, vertebrae; M47.814 Spondylosis without myelopathy or radiculopathy, thoracic region; M48.04 Spinal stenosis, thoracic region; M48.07 Spinal stenosis, lumbosacral region; M43.8X6 Other specified deforming dorsopathies, lumbar region

== ENCOUNTER 2024-08-05 15:44 | Emergency (ER) | payer OTHER ==
[~2024-08-05] VITALS: Ht 162.5 cm; Wt 81.6 kg
[2024-08-05 15:56] VITALS: BP 112/53
[2024-08-05] MEDS ORDERED: methylPREDNISolone sod succ 125 MG VIAL IV ONE (16:25)
[2024-08-05] MEDS ORDERED: Albuterol Sulfate 2.5 MG/3 ML VIAL NEB ONE (16:25)
[2024-08-05] MEDS ORDERED: Ketorolac Tromethamine 15 MG/ML VIAL IV ONE (16:25)
[2024-08-05 16:40] LABS: BASO % 0.6 % (0.0-1.0); EOS % 0.6 % (1.0-4.0); HEMATOCRIT 41.5 % (37.0-47.0); MEAN CORPUSCULAR HGB 28.2 pg (27.0-31.0); MEAN CORPUSCULAR HGB CONC 31.3 g/dl (33.0-37.0); MEAN PLATELET VOLUME 9.7 fl (9.6-12.3); MONO # 0.4 10*3/uL (0.1-1.0); MONO % 7.3 % (3.0-9.0); NEUT # 3.5 10*3/uL (2.3-7.9); NEUT % 67.6 % (47.0-73.0); PLATELET COUNT AUTOMATED 174 10*3/uL (130-400); RED BLOOD COUNT 4.61 10*6/uL (4.10-5.10); RED CELL DISTRI WIDTH 13.4 % (0-14.5); WHITE BLOOD COUNT 5.2 10*3/uL (4.8-10.8)
[2024-08-05 16:59] LABS: ACT PARTIAL THROMBO TIME 26.2 SECONDS (20.0-32.1)
[2024-08-05 17:22] LABS: ALKALINE PHOSPHATASE 52 U/L (46-116); BUN 7 mg/dl (9-23); CHLORIDE 104 mmol/L (98-107); POTASSIUM 3.4 mmol/L (3.4-5.1); SGPT/ALT 10 U/L (5-49); TOTAL PROTEIN 6.5 gm/dL (6.0-8.0)
== END 2024-08-05 17:49 | disposition home or self-care (01) ==
LOC: ED 15:44
PROVIDERS: Emergency Medicine
DX: R07.89 Other chest pain (principal); J44.1 Chronic obstructive pulmonary disease with (acute) exacerbation; J44.9 Chronic obstructive pulmonary disease, unspecified; I10 Essential (primary) hypertension; E78.5 Hyperlipidemia, unspecified; F17.290 Nicotine dependence, other tobacco product, uncomplicated; F17.200 Nicotine dependence, unspecified, uncomplicated; Z91.048 Other nonmedicinal substance allergy status; Z88.5 Allergy status to narcotic agent; Z88.8 Allergy status to other drugs, medicaments and biological substances; Z79.899 Other long term (current) drug therapy; Z98.890 Other specified postprocedural states

== ENCOUNTER 2024-09-08 08:34 | Emergency (ER) | payer OTHER ==
[~2024-09-08] VITALS: Ht 162.5 cm; Wt 83.9 kg
[2024-09-08] MEDS ORDERED: LORazepam 2 MG/ML VIAL IV ONE ×2 (08:55→10:05)
[2024-09-08] MEDS ORDERED: SODIUM CHLORIDE 0.9% 1,000 ML IV ONE (08:55)
[2024-09-08 09:14] LABS: BASO % 0.4 % (0.0-1.0); HEMATOCRIT 42.5 % (37.0-47.0); MEAN CELL VOLUME 86.2 fl (81.0-99.0); MEAN CORPUSCULAR HGB 27.2 pg (27.0-31.0); MEAN CORPUSCULAR HGB CONC 31.5 g/dl (33.0-37.0); MEAN PLATELET VOLUME 9.8 fl (9.6-12.3); MONO # 0.4 10*3/uL (0.1-1.0); MONO % 5.1 % (3.0-9.0); NEUT # 5.2 10*3/uL (2.3-7.9); NEUT % 75.4 % (47.0-73.0); PLATELET COUNT AUTOMATED 242 10*3/uL (130-400); RED BLOOD COUNT 4.93 10*6/uL (4.10-5.10); RED CELL DISTRI WIDTH 13.3 % (0-14.5); WHITE BLOOD COUNT 6.9 10*3/uL (4.8-10.8)
[2024-09-08 09:34] LABS: BUN 9 mg/dl (9-23); CHLORIDE 105 mmol/L (98-107); POTASSIUM 3.5 mmol/L (3.4-5.1)
[2024-09-08 10:49] VITALS: BP 165/78
== END 2024-09-08 11:20 | disposition home or self-care (01) ==
LOC: ED 08:34
PROVIDERS: Emergency Medicine
DX: R25.1 Tremor, unspecified (principal); F41.9 Anxiety disorder, unspecified; J44.9 Chronic obstructive pulmonary disease, unspecified; F32.A Depression, unspecified; I10 Essential (primary) hypertension; E78.5 Hyperlipidemia, unspecified; Z91.048 Other nonmedicinal substance allergy status; Z88.5 Allergy status to narcotic agent; Z91.040 Latex allergy status; Z88.8 Allergy status to other drugs, medicaments and biological substances; Z79.899 Other long term (current) drug therapy; Z98.890 Other specified postprocedural states; Z87.891 Personal history of nicotine dependence

== ENCOUNTER → 2024-10-15 | Outpatient (CLI) | payer OTHER ==
[2024-10-15 07:21] LABS: BASO # 0.0 10*3/uL (0.0-0.1); BASO % 0.7 % (0.0-1.0); EOS # 0.0 10*3/uL (0.0-0.4); EOS % 0.9 % (1.0-4.0); MEAN CELL VOLUME 87.5 fl (81.0-99.0); MEAN CORPUSCULAR HGB 26.7 pg (27.0-31.0); MEAN PLATELET VOLUME 9.2 fl (9.6-12.3); MONO # 0.3 10*3/uL (0.1-1.0); MONO % 7.0 % (3.0-9.0); NEUT # 3.1 10*3/uL (2.3-7.9); NEUT % 67.7 % (47.0-73.0); NUCLEATED RED BLOOD CELL 0.0 % (0.0-0.0); NUCLEATED RED BLOOD CELL 0.0 10*3/uL (0.0-0.0); PLATELET COUNT AUTOMATED 178 10*3/uL (130-400); RED CELL DISTRI WIDTH 13.4 % (0-14.5)
[2024-10-15 07:42] LABS: BUN 14 mg/dl (9-23); LDL CHOLESTEROL 98 mg/dL (9-159); SGPT/ALT 12 U/L (5-49)
== END | disposition home or self-care (01) ==
LOC: LAB 07:03
DX: Z79.899 Other long term (current) drug therapy (principal)

== ENCOUNTER 2024-12-24 08:21 | Inpatient (IN) | payer OTHER ==
[~2024-12-24] VITALS: Ht 165.1 cm; Wt 87.7 kg
[2024-12-24 08:40] VITALS: BP 109/52
[2024-12-24] MEDS ORDERED: KLONOPIN1 M1 PO (09:45)
[2024-12-24] MEDS ORDERED: ZOLOFT50 MG PO (09:46)
[2024-12-24] MEDS ORDERED: VENT7GM INH (09:47)
[2024-12-24] MEDS ORDERED: SPIRIVA RESPIMAT4 GM INH (09:48)
[2024-12-24] MEDS ORDERED: Ondansetron Hydrochloride 4 MG TAB PO ONE (09:55)
[2024-12-24 10:43] LABS: BASO # 0.0 10*3/uL (0.0-0.1); BASO % 0.6 % (0.0-1.0); EOS # 0.0 10*3/uL (0.0-0.4); EOS % 0.2 % (1.0-4.0); MEAN CELL VOLUME 88.7 fl (81.0-99.0); MEAN CORPUSCULAR HGB 27.3 pg (27.0-31.0); MEAN PLATELET VOLUME 9.3 fl (9.6-12.3); MONO # 0.4 10*3/uL (0.1-1.0); MONO % 6.8 % (3.0-9.0); NEUT # 4.0 10*3/uL (2.3-7.9); NEUT % 77.9 % (47.0-73.0); NUCLEATED RED BLOOD CELL 0.0 % (0.0-0.0); NUCLEATED RED BLOOD CELL 0.0 10*3/uL (0.0-0.0); PLATELET COUNT AUTOMATED 147 10*3/uL (130-400); RED CELL DISTRI WIDTH 14.9 % (0-14.5)
[2024-12-24 10:55] LABS: ACT PARTIAL THROMBO TIME 27.0 SECONDS (20.0-32.1)
[2024-12-24 11:04] LABS: BUN 8 mg/dl (9-23)
[2024-12-24 12:00] VITALS: BP 112/75
[2024-12-24] MEDS ORDERED: BISACODYL 10 MG SUPP R PRN (13:00)
[2024-12-24] MEDS ORDERED: ACETAMINOPHEN 650 MG SUPP R PRN (13:00)
[2024-12-24] MEDS ORDERED: ACETAMINOPHEN 325 MG TAB PO PRN (13:00)
[2024-12-24] MEDS ORDERED: Ondansetron Hydrochloride 4 MG/2 ML VIAL IV PRN (13:00)
[2024-12-24] MEDS ORDERED: BISACODYL 5 MG TAB PO PRN (13:00)
[2024-12-24 17:50] VITALS: BP 112/75
[2024-12-24] MEDS ORDERED: Albuterol Sulf/Ipratropium 3 ML VIAL NEB PRN (18:45)
[2024-12-24 20:00] VITALS: BP 109/56
[2024-12-25] VITALS: BP 90/60
[2024-12-25 01:49] VITALS: BP 110/72
[2024-12-25 06:14] LABS: BASO # 0.0 10*3/uL (0.0-0.1); BASO % 0.8 % (0.0-1.0); EOS # 0.0 10*3/uL (0.0-0.4); EOS % 0.3 % (1.0-4.0); MEAN CELL VOLUME 88.3 fl (81.0-99.0); MEAN CORPUSCULAR HGB 27.5 pg (27.0-31.0); MEAN PLATELET VOLUME 10.2 fl (9.6-12.3); MONO # 0.4 10*3/uL (0.1-1.0); MONO % 11.4 % (3.0-9.0); NEUT # 2.2 10*3/uL (2.3-7.9); NEUT % 61.0 % (47.0-73.0); NUCLEATED RED BLOOD CELL 0.0 % (0.0-0.0); NUCLEATED RED BLOOD CELL 0.0 10*3/uL (0.0-0.0); PLATELET COUNT AUTOMATED 163 10*3/uL (130-400); RED CELL DISTRI WIDTH 15.2 % (0-14.5)
[2024-12-25 06:25] LABS: BUN 7 mg/dl (9-23); LDL CHOLESTEROL 110 mg/dL (9-159); SGPT/ALT 24 U/L (5-49)
[2024-12-25 07:20] LABS: VITAMIN D, 25-HYDROXY 36.6 ng/mL (30-100)
[2024-12-25 08:00] VITALS: BP 128/77
[2024-12-25] MEDS ORDERED: EZETIMIBE 10 MG TAB PO SCH (10:00)
[2024-12-25] MEDS ORDERED: OMEPRAZOLE 20 MG CAP PO SCH (10:00)
[2024-12-25] MEDS ORDERED: risperiDONE 0.5 MG TAB PO SCH (10:00)
[2024-12-25] MEDS ORDERED: LISINOPRIL 5 MG TAB PO SCH (10:00)
[2024-12-25 12:00] VITALS: BP 127/82
[2024-12-25] MEDS ORDERED: ENOXAPARIN100 MG/1 M SC (15:42)
[2024-12-26] MEDS ORDERED: FERROUS SULFATE 325 MG TAB PO SCH (10:00)
== END 2024-12-25 15:55 | disposition home or self-care (01) | DRG 300 ==
LOC: ED 08:21 → EDBD 08:22 → ED 08:22 → EDHOLD 12:46 → 4E 12:46 → EDHOLD 13:03 → 4E 17:22
PROVIDERS: Emergency Medicine; ADMIT Internal Medicine; ATTEND Internal Medicine
DX: I82.622 Acute embolism and thrombosis of deep veins of left upper extremity (principal); D68.59 Other primary thrombophilia; F15.90 Other stimulant use, unspecified, uncomplicated; I25.10 Atherosclerotic heart disease of native coronary artery without angina pectoris; J44.9 Chronic obstructive pulmonary disease, unspecified; I10 Essential (primary) hypertension; F41.9 Anxiety disorder, unspecified; K21.9 Gastro-esophageal reflux disease without esophagitis; E78.5 Hyperlipidemia, unspecified; F32.9 Major depressive disorder, single episode, unspecified; R73.9 Hyperglycemia, unspecified; F17.210 Nicotine dependence, cigarettes, uncomplicated; E55.9 Vitamin D deficiency, unspecified; Z78.9 Other specified health status; Z88.1 Allergy status to other antibiotic agents; Z91.040 Latex allergy status; Z88.8 Allergy status to other drugs, medicaments and biological substances; Z91.09 Other allergy status, other than to drugs and biological substances; Z79.899 Other long term (current) drug therapy; Z79.01 Long term (current) use of anticoagulants; Z79.2 Long term (current) use of antibiotics; Z93.3 Colostomy status; Z98.891 History of uterine scar from previous surgery; I25.2 Old myocardial infarction; Z82.49 Family history of ischemic heart disease and other diseases of the circulatory system; Z83.3 Family history of diabetes mellitus; Z82.3 Family history of stroke